=== PATIENT | male | born 1975 | race Caucasian/White ===

== ENCOUNTER 2018-05-13 09:22 | Emergency (ER) | payer SELFPAY ==
[2018-05-13 09:28] VITALS: BP 149/92
--- NOTE | 2018-05-13 10:09 | ER Document Report ---
ED ENT - General Chief Complaint: Ear Pain Stated Complaint: EAR CONGESTION Time Seen by Provider: 05/13/18 09:50 Mode of Arrival: Ambulatory Information source: Patient Notes: 33-year-old male presents to ED for complaint of stuffed up ear with 2-3 weeks. He states it makes him feel dizzy and nausea and vomiting. He states he needs a work note because they said he cannot come back to work until he is seen by a doctor. He states he always has a problem with his right ear. TRAVEL OUTSIDE OF THE [place] IN LAST 30 DAYS: No - HPI Patient complains to provider of: Ear problem - Right ear Onset: Other - 2-3 weeks Onset/Duration: Gradual Quality of pain: Other - Pressure Severity: Mild Pain Level: 1 Location of pain: Ears - Right ear Associated symptoms: Ear pain - Pressure, Vertigo, Other - States it makes him dizzy and nauseated Similar symptoms previously: Yes Recently seen / treated by doctor: No - Related Data Allergies/Adverse Reactions: No Known Allergies Allergy (Verified 05/13/18 09:22) Past Medical History - General Information source: Patient - Social History Smoking Status: Former Smoker Cigarette use (# per day): No Chew tobacco use (# tins/day): Yes Frequency of alcohol use: None Drug Abuse: None 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 Family History: Hypertension - Borderline, not on any medications Patient has suicidal ideation: No Patient has homicidal ideation: No - Past Medical History Cardiac Medical History: Reports: Hx Hypertension Pulmonary Medical History: Reports: None EENT Medical History: Reports: Ears Neurological Medical History: Reports: None Endocrine Medical History: Reports: None Renal/ Medical History: Reports: None Malignancy Medical History: Reports None GI Medical History: Reports: None Musculoskeletal Medical History: Reports None Skin Medical History: Reports None Psychiatric Medical History: Reports: Hx Anxiety, Hx Depression Traumatic Medical History: Reports: None Infectious Medical History: Reports: None Past Surgical History: Reports: Hx Appendectomy - Immunizations Immunizations up to date: Yes Review of Systems - Review of Systems Constitutional: No symptoms reported EENT: No symptoms reported Cardiovascular: No symptoms reported Respiratory: No symptoms reported Gastrointestinal: No symptoms reported Genitourinary: No symptoms reported Male Genitourinary: No symptoms reported Musculoskeletal: No symptoms reported Skin: No symptoms reported Hematologic/Lymphatic: No symptoms reported Neurological/Psychological: No symptoms reported -: Yes All other systems reviewed and negative Physical Exam - Vital signs Vitals: Temp Pulse Resp BP Pulse Ox 98.6 F 83 14 149/92 H 97 05/13/18 09:26 05/13/18 09:05/13/18 09:05/13/18 09:05/13/18 09:26 Interpretation: Normal - General General appearance: Appears well, Alert - HEENT Head: Normocephalic, Atraumatic Eyes: Normal Pupils: PERRL Ears: Normal External canal: Normal Tympanic membrane: Normal Sinus: Normal Nasal: Normal Mouth/Lips: Normal Pharynx: Normal Neck: Normal - Respiratory Respiratory status: No respiratory distress Chest status: Nontender Breath sounds: Normal Chest palpation: Normal - Cardiovascular Rhythm: Regular Heart sounds: Normal auscultation Murmur: No - Abdominal Inspection: Normal Distension: No distension Bowel sounds: Normal Tenderness: Nontender Organomegaly: No organomegaly - Back Back: Normal, Nontender - Extremities General upper extremity: Normal inspection, Nontender, Normal color, Normal ROM , Normal temperature General lower extremity: Normal inspection, Nontender, Normal color, Normal ROM , Normal temperature, Normal weight bearing. No: Moriah's sign - Neurological Neuro grossly intact: Yes Cognition: Normal Orientation: AAOx4 Tarik Coma Scale Eye Opening: Spontaneous Tarik Coma Scale Verbal: Oriented [place] Coma Scale Motor: Obeys Commands Tarik Coma Scale Total: 15 Speech: Normal Motor strength normal: LUE, RUE, LLE, RLE Sensory: Normal - Psychological Associated symptoms: Normal affect, Normal mood - Skin Skin Temperature: Warm Skin Moisture: Dry Skin Color: Normal Course - Re-evaluation Re-evalutation: 05/13/18 10:08 There is no redness swelling no drainage no cerumen impaction to the right ear. Tympanic membrane is within normal limits. He states he has a problem with this ear with pain all the time and that he has been on meclizine in the past for this ear problem. He states he is on 3 different blood pressure medicine but does not have the money till Tuesday to buy his blood pressure medicines. - Vital Signs Vital signs: Temp Pulse Resp BP Pulse Ox 98.6 F 83 14 149/92 H 97 05/13/18 09:26 05/13/18 09:26 05/13/18 09:05/13/18 09:26 05/13/18 09:26 Discharge - Discharge Clinical Impression: Vertigo Condition: Stable Disposition: HOME, SELF-CARE Instructions: Family Physicians / Practices Additional Instructions: DIZZINESS: Under normal circumstances, your sense of balance is controlled by a number of signals that your brain receives from several locations: Eyes. No matter what your position, visual signals help you determine where your body is in space and how it's moving. Sensory nerves. These are in your skin, muscles and joints. Sensory nerves send messages to your brain about body movements and positions. Inner ear. The organ of balance in your inner ear is the vestibular labyrinth. It includes loop-shaped structures (semicircular canals) that contain fluid and fine, hair-like sensors that monitor the rotation of your head. Near the semicircular canals are the utricle and saccule, which contain tiny particles called otoconia ([id number]). These particles are attached to sensors that help detect gravity and [id number] motion. Good balance depends on at least two of these three sensory systems working well. For instance, closing your eyes while washing your hair in the shower doesn't mean you'll lose your balance. Signals from your inner ear and sensory nerves help keep you upright. However, if your central nervous system can't process signals from all of these locations, if the messages are contradictory, or if the sensory systems aren't functioning properly, you may experience loss of balance. Dizziness may have a number of potential causes. These may include: Vertigo Vertigo - the false sense of motion or spinning - is the most common symptom of dizziness. Sitting up or moving around may make it worse. Sometimes vertigo is severe enough to cause nausea and vomiting. Vertigo usually results from a problem with the nerves and the structures of the balance mechanism in your inner ear (vestibular system), which sense movement and changes in your head position. Abnormal rhythmic eye movements ( nystagmus) almost always accompany vertigo. Causes of vertigo may include: Benign paroxysmal positional vertigo (BPPV). BPPV involves intense, brief episodes of vertigo associated with a change in the position of your head, often when you turn over in bed or sit up in the morning. It occurs when normal calcium carbonate crystals (otoconia) break loose and fall into the wrong part of the canals in your inner ear. When these particles shift, they stimulate sensors in your ear, producing an episode of vertigo. Doctors don't know what causes BPPV, but it may be a natural result of aging. Trauma to your head also may lead to BPPV. Inflammation in the inner ear. Signs and symptoms of inflammation of the inner ear (acute vestibular neuronitis or labyrinthitis) include sudden, intense vertigo that may persist for several days, with nausea and vomiting. It can be incapacitating, requiring bed rest to minimize the signs and symptoms. Fortunately, vestibular neuronitis generally subsides and clears up on its own. Recovery time may be shorter with vestibular rehabilitation exercises. Although the cause of this condition is unknown, it may be a viral infection. Meniere's disease. This disease involves the excessive buildup of fluid in your inner ear. It may affect adults at any age and is characterized by sudden episodes of vertigo lasting 30 minutes to an hour or longer. Other signs and symptoms include the feeling of fullness in your ear, buzzing or ringing in your ear (tinnitus), and fluctuating hearing loss. The cause of Meniere's disease is unknown. Vestibular migraine. People who experience a vestibular migraine are very sensitive to motion. Dizziness and vertigo caused by a vestibular migraine may be triggered by turning your head quickly, being in a crowded or confusing place , driving or riding in a vehicle, or even watching movement on TV. A vestibular migraine may cause feelings of imbalance or unsteadiness, hearing loss, "muffled " hearing, or ringing in your ears (tinnitus). For most people with a vestibular migraine, vertigo doesn't necessarily happen at the same time as the headache. Instead, typical migraine triggers may lead to vertigo without an actual migraine. Attacks of migrainous vertigo can last from a few minutes to several days. Acoustic neuroma. An acoustic neuroma (schwannoma) is a noncancerous (benign ) growth on the acoustic nerve, which connects the inner ear to your brain. Signs and symptoms of an acoustic neuroma may include dizziness, loss of balance , hearing loss and tinnitus. Rapid changes in motion. Riding on roller coasters or in boats, cars or even airplanes may on occasion make you dizzy. Other causes. Rarely, vertigo can be a symptom of a more serious neurological problem such as a stroke, brain hemorrhage or multiple sclerosis. Feeling of faintness (presyncope) "Presyncope" is the medical term for feeling faint and lightheaded without losing consciousness. Sometimes nausea, pale skin and a sense of dizziness accompany a feeling of faintness. Causes of presyncope include: Drop in blood pressure (orthostatic hypotension). A dramatic drop in your systolic blood pressure - the higher number in your blood pressure reading - may result in lightheadedness or a feeling of faintness. It can occur after sitting up or standing too quickly. Inadequate output of blood from the heart. Conditions such as partially blocked arteries (atherosclerosis), disease of the heart muscle (cardiomyopathy) , abnormal heart rhythm (arrhythmia) or a decrease in blood volume may cause inadequate blood flow from your heart. Loss of balance (disequilibrium) Disequilibrium is the loss of balance or the feeling of unsteadiness when you walk. Causes may include: Inner ear (vestibular) problems. Abnormalities with your inner ear can cause you to feel like you are floating, have a heavy head or are unsteady in the dark. Sensory disorders. Failing vision and nerve damage in your legs (peripheral neuropathy) are common in older adultsand may result in difficulty maintaining your balance. Joint and muscle problems. Muscle weakness and osteoarthritis - the type of arthritis that involves wear and tear of your joints - can contribute to loss of balance when it involves your weight-bearing joints. Medications. Loss of balance can be a side effect of certain medications, such as anti-seizure drugs, sedatives and tranquilizers. Lightheadedness and other kinds of dizziness Feeling lightheaded is the feeling of being "spaced out" or having the sensation of spinning inside your head. It can also give you the sensation that if your lightheadedness worsens, you might lose consciousness. Causes may include: Inner ear disorders. These abnormalities of your inner ear can lead to illusions of motion and make you feel like you're floating. Anxiety disorders. Certain anxiety disorders, such as panic attacks and a fear of leaving home or being in large, open spaces (agoraphobia), may cause lightheadedness. Hyperventilation. Abnormally rapid breathing that often accompanies anxiety disorders may make you feel lightheaded. NORMAL EXAM AND WORKUP: At this time, your examination and workup show no significant abnormality. No significant abnormal physical findings were noted. All laboratory, EKG, and imaging (x-ray, CT scans, ultrasound) studies that were ordered show no significant abnormality. Although your examination and all studies that were ordered showed no significant abnormal finding, there are no examinations and no studies that are 100% accurate. There is always the possibility that some abnormality could exist and not be detected with physical examination or within the limits and capabilities of laboratory and other studies. You should return or follow up as you were instructed on your visit today for further evaluation if your symptoms do not resolve. MECLIZINE: You are to take meclizine (Antivert) for control of symptoms. This is a drug of the antihistamine family which is useful for controlling nausea, dizziness, and motion sickness. Meclizine is usually taken three times a day, as needed. It's more effective at preventing symptoms than at relieving severe symptoms once they occur. It can be taken BEFORE activities which are likely to cause dizziness or nausea. Common side effects of this medicine are drowsiness and dry mouth. You should use caution in driving or operating machinery while taking this medication. In particular, you should not drive long distances or drive at night while taking this medicine. Meclizine should not be combined with alcohol , narcotics, or sedative medications without consulting your physician. ANTINAUSEA MEDICATION: You have been given a medication to suppress nausea and vomiting. This type of medication can be given as a shot, pill, or suppository. It will usually last for many hours. Pills and shots usually last six to eight hours, suppositories last about 12 hours. For the typical illness, only one or two doses of the medication may be necessary. Mild lightheadedness may occur. This type of medicine can cause drowsiness. Do not drive or operate dangerous machinery while under its influence. Do not mix with alcohol. See your doctor at once if you have muscle spasms or tightness, or uncontrollable motions (particularly of the neck, mouth, or jaw). Persistent vomiting or severe lightheadedness should also be evaluated by the physician. FOLLOW-UP CARE: If you have been referred to a physician for follow-up care, call the physician s office for an appointment as you were instructed or within the next two days. If you experience worsening or a significant change in your symptoms, notify the physician immediately or return to the Emergency Department at any time for re-evaluation. Prescriptions: Meclizine HCl [Antivert 25 mg Tablet] 25 mg PO TID PRN #21 tablet PRN Reason: Ondansetron HCl [Zofran 4 mg Tablet] 1 tab PO Q4H PRN #10 tablet PRN Reason: Forms: Elevated Blood Pressure, Return to Work Referrals: TELMA NEWMAN DO [ASSOCIATE] - Follow up as needed
== END 2018-05-13 10:18 | disposition home or self-care (01) ==
LOC: ER 09:22
DX: R42 Dizziness and giddiness (principal); H93.8X1 Other specified disorders of right ear; R11.2 Nausea with vomiting, unspecified; I10 Essential (primary) hypertension; Z87.891 Personal history of nicotine dependence
CPT/HCPCS: 99282

== ENCOUNTER 2018-05-31 09:24 | Emergency (ER) | payer SELFPAY ==
--- NOTE | 2018-05-31 09:59 | ER Document Report ---
ED Medical Screen (RME) - General Chief Complaint: Rectal Pain Stated Complaint: POSSIBLE HEMORRHOID Time Seen by Provider: 05/31/18 09:59 TRAVEL OUTSIDE OF THE [place] IN LAST 30 DAYS: No - HPI Notes: 05/31/18 09:59 Large painful hemorrhoid - Related Data Allergies/Adverse Reactions: No Known Allergies Allergy (Verified 05/31/18 09:25) Past Medical History - Social History Frequency of alcohol use: Rare Drug Abuse: None - Past Medical History Cardiac Medical History: Reports: Hx Hypertension Renal/ Medical History: Denies: Hx Peritoneal Dialysis Psychiatric Medical History: Reports: Hx Anxiety, Hx Depression Past Surgical History: Reports: Hx Appendectomy - Immunizations Immunizations up to date: Yes Review of Systems - Review of Systems Constitutional: Other - Hemorrhoid Physical Exam - Vital signs Vitals: Temp Pulse Resp BP Pulse Ox 97.8 F 81 12 157/108 H 98 05/31/18 09:28 05/31/18 09:28 05/31/18 09:28 05/31/18 09:28 05/31/18 09:28 - Respiratory Respiratory status: No respiratory distress Chest status: Nontender Breath sounds: Normal Chest palpation: Normal Course - Vital Signs Vital signs: Temp Pulse Resp BP Pulse Ox 97.8 F 81 12 157/108 H 98 05/31/18 09:28 05/31/18 09:28 05/31/18 09:28 05/31/18 09:28 05/31/18 09:28
--- NOTE | 2018-05-31 10:44 | ER Document Report ---
ED General - General Chief Complaint: Rectal Pain Stated Complaint: RECTAL PAIN Time Seen by Provider: 05/31/18 09:59 Mode of Arrival: Ambulatory Information source: Patient Notes: 43-year-old male with hypertension, previous history of hemorrhoids presents with complaint of 1 day of rectal pain. Patient describes the pain as throbbing , worse with sitting. Patient has had previous hemorrhoids which required surgery approximately 7 years ago. He denies any abdominal pain, constipation. TRAVEL OUTSIDE OF THE [place] IN LAST 30 DAYS: No - HPI Onset: Yesterday Onset/Duration: Sudden Quality of pain: Throbbing Severity: Moderate Associated symptoms: denies: Chest pain, Fever, Nausea, Vomiting, Shortness of breath Exacerbated by: Sitting Relieved by: Supine Similar symptoms previously: Yes Recently seen / treated by doctor: No - Related Data Allergies/Adverse Reactions: No Known Allergies Allergy (Verified 05/31/18 09:25) Past Medical History - General Information source: Patient - Social History Smoking Status: Current Every Day Smoker Frequency of alcohol use: Rare Drug Abuse: None Lives with: Friend Family History: Reviewed & Not Pertinent, Hypertension - Borderline, not on any medications Patient has suicidal ideation: No Patient has homicidal ideation: No - Past Medical History Cardiac Medical History: Reports: Hx Hypertension Renal/ Medical History: Denies: Hx Peritoneal Dialysis Psychiatric Medical History: Reports: Hx Anxiety, Hx Depression Past Surgical History: Reports: Hx Appendectomy - Immunizations Immunizations up to date: Yes Review of Systems - Review of Systems Notes: REVIEW OF SYSTEMS: CONSTITUTIONAL : Denies fever, chills, or sweats. Denies recent illness. Denies weight loss, recent hospitalizations. EENT: Denies visual changes, eye pain. Denies nasal or sinus congestion or discharge. Denies sore throat, oral lesions, difficulty swallowing. CARDIOVASCULAR: Denies chest pain. Denies palpitations. Denies lower extremity edema. RESPIRATORY: Denies cough, cold, or chest congestion. Denies shortness of breath, wheezing. GASTROINTESTINAL: Denies abdominal pain or distention. Denies nausea, vomiting , or diarrhea. Denies blood in vomitus, stools, or per rectum. Denies black, tarry stools. Denies constipation. GENITOURINARY: Denies difficulty urinating, painful urination, frequency, blood in urine, MUSCULOSKELETAL: Denies back or neck pain or stiffness. Denies joint pain or swelling. SKIN: Denies rash, lesions or sores. HEMATOLOGIC : Denies easy bruising or bleeding. LYMPHATIC: Denies swollen glands. NEUROLOGICAL: Denies confusion or altered mental status. Denies passing out or loss of consciousness. Denies dizziness or lightheadedness. Denies headache. Denies weakness or paralysis. Denies problems difficulty with ambulation, slurred speech. Denies sensory loss, numbness, or tingling. Denies seizures. PSYCHIATRIC: Denies anxiety or stress. Denies depression, suicidal ideation, or homicidal ideation. Denies visual or auditory hallucinations. Physical Exam - Vital signs Vitals: Temp Pulse Resp BP Pulse Ox 97.8 F 81 12 157/108 H 98 05/31/18 09:28 05/31/18 09:28 05/31/18 09:28 05/31/18 09:28 05/31/18 09:28 Interpretation: Hypertensive - Notes Notes: PHYSICAL EXAMINATION: GENERAL: Well-appearing, well-nourished and in no acute distress. HEAD: Atraumatic, normocephalic. EYES: Pupils equal round and reactive to light, extraocular movements intact, sclera anicteric, conjunctiva are normal. ENT: Nares patent, oropharynx clear without exudates. Moist mucous membranes. NECK: Normal range of motion, supple without lymphadenopathy LUNGS: Breath sounds clear to auscultation bilaterally and equal. No wheezes rales or rhonchi. HEART: Regular rate and rhythm without murmurs ABDOMEN: Soft, nontender, nondistended abdomen. No guarding, no rebound. No masses appreciated. : Large external hemorrhoid, soft, reducible, not thrombosed. Musculoskeletal: Normal range of motion, no pitting or edema. No cyanosis. NEUROLOGICAL: Cranial nerves grossly intact. Normal speech, normal gait. Normal sensory, motor exams PSYCH: Normal mood, normal affect. SKIN: Warm, Dry, normal turgor, no rashes or lesions noted. Course - Re-evaluation Re-evalutation: 05/31/18 10:40 43-year-old male presents with complaint of rectal pain. Has had previous external hemorrhoids which required surgery approximately 7 years ago. Rectal pain started yesterday. Denies any straining with bowel movements. Patient found to be markedly hypertensive but states that he has been out of his high blood pressure medication and cannot get it until Tuesday, because that is when he gets paid. He is unable to tell me what medications he is currently taking. I see to medications listed but he is unsure if these are the ones that he is currently taking. Exam is significant for a large external hemorrhoid which does not appear thrombosed, it is soft, reducible manually. Patient provided the opportunity to ask questions, and express concerns. Discharge instructions discussed. Patient is agreeable with discharge home. Return indications explained and discussed with the patient who displays understanding. Patient encouraged to return to the emergency department immediately with any concerns. 05/31/18 10:52 - Vital Signs Vital signs: Temp Pulse Resp BP Pulse Ox 97.8 F 81 12 157/108 H 98 05/31/18 09:28 05/31/18 09:28 05/31/18 09:28 05/31/18 09:28 05/31/18 09:28 Discharge - Discharge Clinical Impression: Rectal pain, External hemorrhoids without complication, Non compliance w medication regimen Hypertension Qualifiers: Hypertension type: unspecified Qualified Code(s): I10 - Essential (primary) hypertension Condition: Good Disposition: HOME, SELF-CARE Instructions: HC Hemorrhoid Cream ([facility]), Hemorrhoids ([facility]), Pain Medication Injection ([facility]), Bulk Laxatives Additional Instructions: Please perform sitz bath. Fill your bathtub with 3-4 inches of warm water and soak daily. At this point your hemorrhoid does not appear to be thrombosed requiring excision. This may change. He may require incision at a later date if the medications do not work. The cheapest prescription I could find for this medication is [employer] [facility] [employer]. Prescriptions: Hydrocodone/Acetaminophen [[place] 5-325 mg Tablet] 1 tab PO Q6H #10 tablet Hydrocortisone Acetate [Anusol Hc 25 mg Supp.rect] 1 supp.rect [place] BID #14 supp.rect Phenyleph/Mineral Oil/Petrolat [Preparation H Ointment] 28 gm RC BID #1 tube Forms: Elevated Blood Pressure
[2018-05-31 11:12] VITALS: BP 143/98
== END 2018-05-31 11:09 | disposition home or self-care (01) ==
LOC: ER 09:24
DX: K62.89 Other specified diseases of anus and rectum (principal); K64.4 Residual hemorrhoidal skin tags; I10 Essential (primary) hypertension; Z91.14 Patient's other noncompliance with medication regimen
CPT/HCPCS: 99283

== ENCOUNTER 2019-05-16 20:29 | Inpatient (IN) | payer SELFPAY ==
[~2019-05-16 20:29] MED LIST: MORPHINE SULFATE 10 MG/ML INJ IV PRN
[2019-05-16] MEDS ORDERED: ASPIRIN 81 MG TABLET, CHEWABLE PO ONE (20:34)
[2019-05-16] MEDS ORDERED: DILTIAZEM HCL/D5W 125 MG/125 ML RTUINJ IV PRN ×2 (20:45→23:36)
[2019-05-16] MEDS ORDERED: DILTIAZEM HCL INJ 25 MG/5 ML VIAL IV ONE (20:45)
[2019-05-16] MEDS ORDERED: LORAZEPAM INJ 2 MG/1 ML VIAL IV ONE (20:55)
[2019-05-16] MEDS ORDERED: NORMAL SALINE 1000 ML 1,000 ML IV ONE (20:57)
[2019-05-16] MEDS ORDERED: LORAZEPAM INJ 2 MG/1 ML VIAL ONE (20:57)
--- NOTE | 2019-05-16 20:58 | ER Document Report ---
ED General - General Stated Complaint: DIZZINESS Time Seen by Provider: 05/16/19 20:39 Notes: Patient is a 44-year-old male that comes to the emergency department by EMS for chief complaint of an episode where he suddenly started feeling bad vertigo, spinning, he started vomiting, he states that he started feeling tight in his chest. EMS found him to be in atrial fibrillation with rapid response, patient was given Zofran, Benadryl, and 25 mg of Cardizem. Patient slow down into the 90s reportedly, however this was almost 1 hour ago prior to my evaluation and patient is back into atrial fibrillation with rapid ventricular response in the 150s to 160s. Patient states he feels lightheaded and vaguely nauseated. Spinning is not as bad as earlier. 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 Patient reports a history of vertigo and hypertension on amlodipine 5m and lisinopril/HCTZ 20mg/25mg. He states he drinks alcohol frequently but has not in the past several days, he denies history of withdrawals. He denies recreational drugs. Uses dip but denies smoking. He denies ever being told of having afib or an irregular heartbeat. TRAVEL OUTSIDE OF THE [place] IN LAST 30 DAYS: No - Related Data Allergies/Adverse Reactions: No Known Allergies Allergy (Verified 05/31/18 09:25) Past Medical History - General Information source: Patient - Social History Smoking Status: Never Smoker Chew tobacco use (# tins/day): Yes Frequency of alcohol use: Occasional Drug Abuse: None Lives with: Alone Family History: Reviewed & Not Pertinent, Hypertension - Borderline, not on any medications - Past Medical History Cardiac Medical History: Reports: Hx Hypertension Renal/ Medical History: Denies: Hx Peritoneal Dialysis Psychiatric Medical History: Reports: Hx Anxiety, Hx Depression Past Surgical History: Reports: Hx Appendectomy - Immunizations Immunizations up to date: Yes Review of Systems - Review of Systems Constitutional: See HPI EENT: No symptoms reported Cardiovascular: See HPI Respiratory: No symptoms reported Gastrointestinal: See HPI Genitourinary: No symptoms reported Male Genitourinary: No symptoms reported Musculoskeletal: No symptoms reported Skin: No symptoms reported Hematologic/Lymphatic: No symptoms reported Neurological/Psychological: See HPI Physical Exam - Vital signs Vitals: Resp Pulse Ox 23 H 100 05/16/19 20:33 05/16/19 20:33 - Notes Notes: GENERAL: Alert, appears somewhat uncomfortable, mildly ill-appearing HEAD: Normocephalic, atraumatic. EYES: Pupils equal, round, and reactive to light. Extraocular movements intact. ENT: Oral mucosa moist, tongue midline. Oropharynx unremarkable. Airway patent. LUNGS: Clear to auscultation bilaterally, no wheezes, rales, or rhonchi. No respiratory distress. HEART: Irregularly irregular, tachycardia ABDOMEN: Soft, non-tender. Non-distended. GENITOURINARY: Deferred EXTREMITIES: Moves all 4 extremities spontaneously. No edema, normal radial and dorsalis pedis pulses bilaterally. No cyanosis. BACK: no cervical, thoracic, lumbar midline tenderness. No saddle anesthesia, normal distal neurovascular exam. Moves all extremities in full range of motion. NEUROLOGICAL: Alert and oriented x3. Normal speech. Cranial nerves II through XII grossly intact. PSYCH: Normal affect, normal mood. SKIN: Slightly pale and slightly diaphoretic Course - Re-evaluation Re-evalutation: On initial evaluation patient is in atrial fibrillation with rapid ventricular response. He also suddenly became nauseated and vomited. Patient was initially given 1 mg of IV Ativan and this significantly helped with his vertigo and vomi ting. Given IV fluids, given 25 mg of IV Cardizem bolus, placed on Cardizem drip to maintain this since he has not maintained rate control since the first dose. Patient did respond well, heart rate decreased into the low 100s but occasionally will still jump back up higher. Patient reevaluated, feels significantly better. CBC, chemistry unremarkable, troponin unremarkable, chest x-ray unremarkable, work-up otherwise with no concerning findings. Given Lovenox. Patient has been given aspirin too. Because of persistent vertigo, vomiting, new onset atrial fibrillation with rapid ventricular response requiring Cardizem drip, patient will require admission. I discussed this with patient, he states agreement. Discussed with Dr. Figueroa, hospitalist, patient will be admitted to the [facility] f ull admission. - Vital Signs Vital signs: Temp Pulse Resp BP Pulse Ox 97.6 F 66 20 97/56 L 96 05/17/19 03:55 05/17/19 03:55 05/17/19 03:55 05/17/19 03:55 05/17/19 03:55 - Laboratory Result Diagrams: 05/17/19 02:47 05/17/19 02:47 Laboratory results interpreted by me: 05/16/19 05/16/19 05/16/19 20:47 20:50 20:50 RDW 14.1 H Lymph % (Auto) 9.0 L Absolute Neuts (auto) 8.5 H Seg Neutrophils % 84.4 H Potassium 3.5 L Carbon Dioxide 17 L Glucose 149 H POC Glucose 139 H Total Protein 8.3 H Urine Ketones 05/16/19 20:50 RDW Lymph % (Auto) Absolute Neuts (auto) Seg Neutrophils % Potassium Carbon Dioxide Glucose POC Glucose Total Protein Urine Ketones 20 H Discharge - Discharge Clinical Impression: Atrial fibrillation with RVR, Vertigo, Dehydration Nausea and vomiting Qualifiers: Vomiting type: unspecified Vomiting Intractability: non-intractable Qualified Code(s): R11.2 - Nausea with vomiting, unspecified Condition: Stable Disposition: ADMITTED INPATIENT Admitting Provider: Carolina (Hospitalist) Unit Admitted: [facility]
[2019-05-16] MEDS ORDERED: DILTIAZEM HCL INJ 25 MG/5 ML VIAL ONE (21:03)
[2019-05-16] MEDS ORDERED: DILTIAZEM HCL/D5W 125 MG/125 ML RTUINJ IV ONE (21:04)
[2019-05-16] MEDS ORDERED: ASPIRIN 81 MG TABLET, ENT COATED PO ONE (21:18)
[2019-05-16] MEDS ORDERED: ASPIRIN 81 MG TABLET, CHEWABLE ONE (21:19)
[2019-05-16 21:31] LABS: ABSOLUTE EOSINOPHILS # (AUTO) 0.1 10^3/uL (0.0-0.6); ABSOLUTE LYMPHOCYTES (AUTO) 0.9 10^3/uL (0.5-4.7); ABSOLUTE MONOCYTES (AUTO) 0.6 10^3/uL (0.1-1.4); ABSOLUTE NEUT (AUTO) 8.5 10^3/uL (1.7-8.2); BASOPHILS % (AUTO) 0.3 % (0-2); EOSINOPHILS % (AUTO) 0.7 % (0-6); HEMATOCRIT 46.3 % (37.9-51.0); MEAN CORPUSCULAR HGB CONC 34.4 g/dL (32.0-36.0); MEAN CORPUSCULAR VOLUME 87 fl (80-97); MONOCYTES % (AUTO) 5.6 % (3-13); PLATELET COUNT 231 10^3/uL (150-450); RED BLOOD COUNT 5.32 10^6/uL (4.35-5.55); RED CELL DISTRIBUTION WIDTH 14.1 % (11.5-14.0); SEGMENTED NEUTROPHILS % (AUTO) 84.4 % (42-78); TOTAL CELLS COUNTED % (AUTO) 100 %
[2019-05-16 21:33] LABS: APPEARANCE,URINE CLEAR; BILIRUBIN,URINE NEGATIVE (NEGATIVE); COLOR,URINE STRAW; GLUCOSE, URINE NEGATIVE (NEGATIVE); KETONES,URINE 20 mg/dL (NEGATIVE); LEUKOCYTE ESTERASE,URINE NEGATIVE (NEGATIVE); NITRITE,URINE NEGATIVE (NEGATIVE); PROTEIN,URINE NEGATIVE (NEGATIVE); URINE SPECIFIC GRAVITY 1.009; UROBILINOGEN,URINE NEGATIVE mg/dL (<2.0)
[2019-05-16 21:40] LABS: ALBUMIN 4.9 g/dL (3.5-5.0); ALKALINE PHOSPHATASE 79 U/L (38-126); ANION GAP 18 (5-19); ASPARTATE AMINO TRANSFERASE 44 U/L (17-59); BILIRUBIN,DIRECT 0.3 mg/dL (0.0-0.4); BILIRUBIN,TOTAL 0.9 mg/dL (0.2-1.3); BLOOD UREA NITROGEN 10 mg/dL (7-20); CALCIUM 9.4 mg/dL (8.4-10.2); CARBON DIOXIDE 17 mmol/L (22-30); CHLORIDE 105 mmol/L (98-107); GLUCOSE 149 mg/dL (75-110); POTASSIUM 3.5 mmol/L (3.6-5.0); TOTAL PROTEIN 8.3 g/dL (6.3-8.2)
--- NOTE | 2019-05-16 21:53 | RADIOLOGY REPORT (SQ) ---
EXAM DESCRIPTION: [facility]: XR CHEST 1 VIEW CLINICAL HISTORY: 44 years Male, CP COMPARISON: None. FINDINGS: Lungs are clear, with no focal infiltrate, pneumothorax, or pleural effusion. Mediastinum is within normal limits for this positioning. Bony structures are unremarkable. IMPRESSION: 1. No acute pulmonary findings.
[2019-05-16] MEDS ORDERED: ENOXAPARIN SODIUM INJ 100 MG/1 ML DISP.SYRIN SUBCUT ONE ×2 (22:25→22:28)
[2019-05-16] MEDS ORDERED: TEMAZEPAM 15 MG CAPSULE PO PRN (23:29)
[2019-05-16] MEDS ORDERED: ONDANSETRON 4 MG TAB.RAPDIS PO PRN (23:29)
[2019-05-16] MEDS ORDERED: ONDANSETRON HCL INJ/PF 4 MG/2 ML SDV IV PRN (23:29)
[2019-05-16] MEDS ORDERED: RINGERS SOLUTION,LACTATED 1,000 ML IV PRN (23:29)
[2019-05-16] MEDS ORDERED: MAGNESIUM HYDROXIDE SUSP 30 ML UDCUP PO PRN (23:29)
[2019-05-16] MEDS ORDERED: MAG HYDROX/AL HYDROX/SIMETH SUSP 30 ML UDCUP PO PRN (23:29)
[2019-05-16] MEDS ORDERED: ACETAMINOPHEN 325 MG TABLET PO PRN (23:35)
[2019-05-16] MEDS ORDERED: MORPHINE SULFATE 10 MG/ML INJ IV PRN (23:35)
[2019-05-17] MEDS ORDERED: FAMOTIDINE INJ/PF 20 MG/2 ML SDV IV ONE (00:15)
[2019-05-17] MEDS ORDERED: SCOPOLAMINE HYDROBROMIDE 1.5 MG PATCH.TD72 TD ONE (00:15)
[2019-05-17] MEDS ORDERED: DILTIAZEM HCL 90 MG TABLET ONE (01:52)
--- NOTE | 2019-05-17 02:10 | PDOC H&P ---
History of Present Illness Admission Date/PCP: 05/16/19 22:38 No PCP Patient complains of: Vertigo History of Present Illness: CIELO RICO is a 44 year old male who presented to the emergency room with acute vertigo. 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 While driving home he abruptly developed severe vertigo, with associated nausea and vomiting as well as tightness in his chest, when he turned his head to the right to look for oncoming traffic. He denies other associated or accompanying symptoms and has not experienced prior similar episodes. His vertigo was made worse by movements of his head especially looking to the right. He has not identified any other aggravating or ameliorating factors for his vertigo. EMS was summoned and found him to be in atrial fibrillation with a rapid ventricular response which was treated with intravenous Cardizem, Benadryl and Zofran. Patient showed marked improvement with treatment. In the emergency room patient was found to remain in atrial fibrillation and require a diltiazem infusion for control of his heart rate. He was also treated with meclizine which markedly improved his vertigo. He was subsequently admitted to the [facility] for further evaluation and treatment of his acute onset atrial fibrillation. Past Medical History Cardiac Medical History: Reports: Hypertension Denies: Coronary Artery Disease, DVT, Myocardial Infarction, Hyperlipidema Pulmonary Medical History: Denies: Asthma, Chronic Obstructive Pulmonary Disease (COPD) EENT Medical History: Denies: Cataracts, Nose - Allergic rhinitis Neurological Medical History: Denies: Hemorrhagic CVA, Ischemic CVA, Multiple Sclerosis, Seizures Endocrine Medical History: Reports: Obesity Denies: Diabetes Mellitus Type 1, Diabetes Mellitus Type 2, Hyperthyroidism, Hypothyroidism Renal/ Medical History: Denies: Chronic Kidney Disease, Nephrolithiasis Malignancy Medical History: Reports: None GI Medical History: Reports: Other - Hemorrhoids Denies: Cirrhosis, Crohn's Disease, Hepatitis, Ulcerative Colitis Musculoskeltal Medical History: Denies: Arthritis, Gout Skin Medical History: Denies: Eczema, Psoriasis Psychiatric Medical History: Reports: Depression, Tobacco Dependency Denies: Alcohol Dependency, Substance Abuse Traumatic Medical History: Reports: None Hematology: Denies: Anemia, Bleeding Tendencies Infectious Medical History: Reports: None Past Surgical History Past Surgical History: Reports: Appendectomy Social History Information Source: Patient Lives with: Spouse/Significant other Smoking Status: Current Every Day Smoker Frequency of Alcohol Use: Occasional Hx Recreational Drug Use: No Drugs: None Hx Prescription Drug Abuse: No - Advance Directive Resuscitation Status: Full Code Surrogate healthcare decision maker:: Ellie Griffith Family History Family History: DM, Hypertension, Malignancy. denies: CAD Parental Family History Reviewed: Yes Children Family History Reviewed: No Sibling(s) Family History Reviewed.: Yes Medication/Allergy Home Medications: Amlodipine Besylate 5 mg PO DAILY 05/31/18 Hydrocodone/Acetaminophen [[place] 5-325 mg Tablet] 1 tab PO Q6H #10 tablet 05/31/18 Hydrocortisone Acetate [Anusol Hc 25 mg Supp.rect] 1 supp.rect NH BID #14 supp.rect 05/31/18 Lisinopril/Hydrochlorothiazide [Lisinopril-Hctz 20-25 mg Tab] 1 each PO DAILY 05/31/18 Phenyleph/Mineral Oil/Petrolat [Preparation H Ointment] 28 gm RC BID #1 tube 05/31/18 Allergies/Adverse Reactions: No Known Allergies Allergy (Verified 05/31/18 09:25) Review of Systems Constitutional: ABSENT: chills, fever(s) Eyes: ABSENT: visual disturbances, other - Eye pain Ears: ABSENT: hearing changes, other - Ear pain Nose, Mouth, and Throat: ABSENT: mouth pain, sore throat Cardiovascular: PRESENT: as per HPI, chest pain - Chest tightness with nausea vomiting and dizziness. ABSENT: palpitations Respiratory: ABSENT: cough, dyspnea Gastrointestinal: PRESENT: nausea, vomiting. ABSENT: abdominal pain, constipation, diarrhea, hematemesis Genitourinary: ABSENT: dysuria, hematuria Musculoskeletal: ABSENT: back pain, joint swelling, muscle weakness Integumentary: ABSENT: pruritus, rash Neurological: PRESENT: as per HPI, dizziness, vertigo. ABSENT: confusion, convulsions, focal weakness, memory loss, syncope Psychiatric: ABSENT: anxiety, depression Endocrine: ABSENT: cold intolerance, heat intolerance Hematologic/Lymphatic: ABSENT: easy bleeding, easy bruising Physical Exam Vital Signs: Temp Pulse Resp BP Pulse Ox 97.7 F 153 H 23 H 124/89 H 95 05/16/19 20:34 05/16/19 20:34 05/16/19 22:39 05/16/19 22:39 05/16/19 22:39 Intake & Output 05/14/19 05/15/19 05/16/19 23:59 23:59 23:59 Intake Total 1005 Balance 1005 Weight 99.6 kg General appearance: PRESENT: no acute distress, cooperative, obese Head exam: PRESENT: atraumatic, normocephalic Eye exam: PRESENT: conjunctiva pink, nystagmus - Severe right lateral gaze nystagmus (fast component to the right). ABSENT: conjunctival injection, scleral icterus Ear exam: PRESENT: normal external ear exam. ABSENT: bleeding, drainage Mouth exam: PRESENT: dry mucosa, neck supple Neck exam: ABSENT: thyromegaly, tracheal deviation Respiratory exam: PRESENT: clear to auscultation haylee, symmetrical, unlabored Cardiovascular exam: PRESENT: irregular rhythm - Irregularly irregular rate and rhythm, tachycardia. ABSENT: clicks, gallop, rubs Pulses: PRESENT: normal radial pulses, normal dorsalis pedis pul Vascular exam: PRESENT: normal capillary refill. ABSENT: pallor GI/Abdominal exam: PRESENT: normal bowel sounds, soft Rectal exam: PRESENT: deferred Extremities exam: ABSENT: joint swelling, pedal edema Musculoskeletal exam: PRESENT: full ROM, normal inspection. ABSENT: tenderness Neurological exam: PRESENT: alert, oriented to person, oriented to place, oriented to time, oriented to situation, CN II-XII grossly intact. ABSENT: motor sensory deficit Psychiatric exam: PRESENT: appropriate affect, normal mood Skin exam: PRESENT: dry, intact, warm. ABSENT: jaundice, rash, urticaria Results Laboratory Results: 05/16/19 20:50 05/16/19 20:50 05/16/19 05/16/19 05/16/19 20:50 20:50 20:50 WBC 10.0 RBC 5.32 Hgb 16.0 Hct 46.3 MCV 87 MCH 30.0 MCHC 34.4 RDW 14.1 H Plt Count 231 Seg Neutrophils % 84.4 H Sodium 140.3 Potassium 3.5 L Chloride 105 Carbon Dioxide 17 L Anion Gap 18 BUN 10 Creatinine 0.75 Est GFR ( Amer) > 60 Glucose 149 H Calcium 9.4 Magnesium 1.7 Total Bilirubin 0.9 AST 44 Alkaline Phosphatase 79 Total Protein 8.3 H Albumin 4.9 Urine Color STRAW Urine Appearance CLEAR Urine pH 7.0 Ur Specific [place] 1.009 Urine Protein NEGATIVE Urine Glucose (UA) NEGATIVE Urine Ketones 20 H Urine Blood NEGATIVE Urine Nitrite NEGATIVE Ur Leukocyte Esterase NEGATIVE Urine WBC (Auto) 1 Urine RBC (Auto) 0 05/16/19 05/16/19 20:50 20:50 Creatine Kinase 160 Troponin I < 0.012 Impressions: Chest X-Ray 05/16/19 00:00 IMPRESSION: 1. No acute pulmonary findings. Assessment and Plan - Diagnosis (1) Atrial fibrillation with RVR Is this a current diagnosis for this admission?: Yes Plan: Patient will have serial cardiac enzymes and EKGs performed. He will be treated with Lovenox 1 mg/kg every 12 hours as initial embolic protection. A cardiology consultation will be obtained with Dr. Oneill. Patient will use morphine sulfate 2 to 4 mg IV every 2 hours on a as needed basis for chest pain. He will be monitored on the IMCU floor and he will be treated with a diltiazem infusion per protocol until oral agents have been effective at controlling his heart rate and blood pressure. (2) Vertigo Is this a current diagnosis for this admission?: Yes Plan: Patient will be continued on meclizine orally for control of his vertigo and dizziness. Further evaluation will be considered if the symptoms do not resolve or show some evidence of lateralization. (3) Nausea and vomiting Qualifiers: Vomiting type: unspecified Vomiting Intractability: non-intractable Qualified Code(s): R11.2 - Nausea with vomiting, unspecified Is this a current diagnosis for this admission?: Yes Plan: Patient's nausea vomiting was treated with IV fluid repletion and electrolyte balancing. He will further be treated with Zofran on a as needed basis for nausea. (4) Hypertension Qualifiers: Hypertension type: essential hypertension Qualified Code(s): I10 - Essential (primary) hypertension Is this a current diagnosis for this admission?: Yes Plan: Patient with therapeutic treatment will be adjusted for control of his atrial fibrillation with rapid ventricular response using Cardizem and metoprolol XL. - Time Time Spent with patient: 25-34 minutes Medications reviewed and adjusted accordingly: Yes Anticipated discharge: Home - Inpatient Certification Based on my medical assessment, after consideration of the patient's comorbidities, presenting symptoms, or acuity I expect that the services needed warrant INPATIENT care.: Yes I certify that my determination is in accordance with my understanding of Medicare's requirements for reasonable and necessary INPATIENT services [42 CFR 412.3e].: Yes Medical Necessity: Need Close Monitoring Due to Risk of Patient Decompensation, Need For Continuous Telemetry Monitoring, Need for Neurological Checks, Risk of Complication if Not Cared For in Hospital
[2019-05-17 03:01] LABS: HEMATOCRIT 43.7 % (37.9-51.0); HEMOGLOBIN 14.8 g/dL (13.5-17.0); MEAN CORPUSCULAR HEMOGLOBIN 29.7 pg (27.0-33.4); MEAN CORPUSCULAR HGB CONC 33.9 g/dL (32.0-36.0); MEAN CORPUSCULAR VOLUME 88 fl (80-97); PLATELET COUNT 226 10^3/uL (150-450); RED BLOOD COUNT 4.98 10^6/uL (4.35-5.55); RED CELL DISTRIBUTION WIDTH 14.2 % (11.5-14.0); WHITE BLOOD COUNT 8.5 10^3/uL (4.0-10.5)
[2019-05-17 03:20] LABS: ANION GAP 11 (5-19); BLOOD UREA NITROGEN 10 mg/dL (7-20); CALCIUM 8.8 mg/dL (8.4-10.2); CARBON DIOXIDE 22 mmol/L (22-30); CHLORIDE 106 mmol/L (98-107); CHOLESTEROL 194.12 mg/dL (0-200); CREATINE KINASE 130 U/L (55-170); GLUCOSE 117 mg/dL (75-110); TRIGLYCERIDES 103 mg/dL (<150)
[2019-05-17 03:31] LABS: DIRECT LDL 161 mg/dL (<100)
[2019-05-17 03:32] LABS: CREATINE KINASE MB 1.13 ng/mL (<4.55)
[2019-05-17 03:38] LABS: FREE T3 3.18 pg/mL (2.77-5.27); FREE T4 (FREE THYROXINE) 0.95 ng/dL (0.78-2.19); TROPONIN I < 0.012 ng/mL
[2019-05-17 03:41] LABS: POTASSIUM 4.7 mmol/L (3.6-5.0)
[2019-05-17 03:51] LABS: THYROID STIMULATING HORMONE 0.67 uIU/mL (0.47-4.68)
[2019-05-17] MEDS ORDERED: DILTIAZEM HCL 90 MG TABLET PO ONE (08:00)
--- NOTE | 2019-05-17 09:03 | EKG REPORT ---
SEVERITY:- ABNORMAL ECG - ATRIAL FIBRILLATION, V-RATE 90-174 MULTIFORM VENTRICULAR PREMATURE COMPLEXES BORDERLINE PROLONGED QT INTERVAL : Confirmed by: Vira Oneill MD 17-May-2019 09:02:14
--- NOTE | 2019-05-17 09:03 | EKG REPORT ---
SEVERITY:- ABNORMAL ECG - ATRIAL FIBRILLATION NONSPECIFIC REPOL ABNORMALITY, INFERIOR LEADS PROLONGED QT INTERVAL : Confirmed by: Vira Oneill MD 17-May-2019 09:02:20
[2019-05-17] MEDS: DOCUSATE SODIUM 100 MG CAPSULE PO SCH ×2 (09:13→17:00)
[2019-05-17] MEDS: FAMOTIDINE INJ/PF 20 MG/2 ML SDV IV SCH ×2 (09:14→21:48)
[2019-05-17] MEDS: LISINOPRIL 10 MG TABLET PO SCH (09:14)
[2019-05-17] MEDS ORDERED: HYDROCHLOROTHIAZIDE 12.5 MG TABLET PO SCH (10:00)
[2019-05-17] MEDS ORDERED: METOPROLOL SUCCINATE 50 MG TAB.SR.24H PO SCH (10:00)
[2019-05-17] MEDS ORDERED: ENOXAPARIN SODIUM INJ 100 MG/1 ML DISP.SYRIN SUBCUT SCH (10:00)
[2019-05-17 10:38] LABS: APPEARANCE,URINE CLEAR; BILIRUBIN,URINE NEGATIVE (NEGATIVE); COLOR,URINE YELLOW; GLUCOSE, URINE NEGATIVE (NEGATIVE); KETONES,URINE TRACE mg/dL (NEGATIVE); LEUKOCYTE ESTERASE,URINE NEGATIVE (NEGATIVE); NITRITE,URINE NEGATIVE (NEGATIVE); PROTEIN,URINE NEGATIVE (NEGATIVE); URINE SPECIFIC GRAVITY 1.018; UROBILINOGEN,URINE NEGATIVE mg/dL (<2.0)
[2019-05-17 10:44] LABS: CREATINE KINASE MB 1.13 ng/mL (<4.55)
[2019-05-17 10:49] LABS: TROPONIN I < 0.012 ng/mL
--- NOTE | 2019-05-17 10:49 | Progress Note Acknowledgement ---
Progress Note Acknowledgement Progess Note Acknowledgement: I, the undersigned member of the medical staff with appropriate privileges and with supervisory authority over [ PAC ], a dependent practice allied health professional, acknowledge that I have reviewed the progress notes entered on this patient, and in my professional judgment believe that the assessment made and/or any care evidenced was appropriate
--- NOTE | 2019-05-17 10:55 | PDOC PROGRESS REPORT ---
Subjective Progress Note for:: 05/17/19 Subjective:: Patient was admitted on 05/16/2019 at approximately 2200 hrs. patient was admitted for acute vertigo, patient evidently had had only 10 cups of coffee earlier that day. Patient was driving and suddenly turned his head to the right when he had acute onset of vertigo as well as vomiting. Patient presented to the emergency room he was found to be in atrial fib with rapid ventricular rate patient was put on IV Cardizem. Patient was supposed to be taken Norvasc 5 mill grams a day and lisinopril and HCTZ however due to financial difficulty he was not taking his medication patient stated he had a history of hypertension. Patient states his had a history of vertigo off and on for 6 years. Patient states that they told him his vertigo was secondary to his hypertension. Reason For Visit: NEW ONSET ATRIAL FIBRILLATION WITH RAPID Physical Exam Vital Signs: Temp Pulse Resp BP Pulse Ox 98.0 F 69 14 125/73 97 05/17/19 08:03 05/17/19 08:03 05/17/19 08:03 05/17/19 08:03 05/17/19 08:03 Intake & Output 05/16/19 05/17/19 05/18/19 06:59 06:59 06:59 Intake Total 1053 197 Balance 1053 197 Weight 87.4 kg General appearance: PRESENT: no acute distress, well-developed, well-nourished Head exam: PRESENT: atraumatic, normocephalic Respiratory exam: PRESENT: clear to auscultation haylee. ABSENT: rales, rhonchi, wheezes Cardiovascular exam: PRESENT: RRR, other - Patient's heart rate at the time of my visit is approximately 78 bpm and regular and looks as though patient converted around 6 AM this morning from 114 down to 73. ABSENT: diastolic murmur, rubs, systolic murmur Neurological exam: PRESENT: alert, awake, oriented to person, oriented to place, oriented to time, oriented to situation, CN II-XII grossly intact. ABSENT: motor sensory deficit Psychiatric exam: PRESENT: appropriate affect, normal mood, other - She is in good spirits complaints. ABSENT: homicidal ideation, suicidal ideation Results Laboratory Results: 05/17/19 02:47 05/17/19 02:47 05/16/19 05/16/19 05/16/19 20:50 20:50 20:50 WBC 10.0 RBC 5.32 Hgb 16.0 Hct 46.3 MCV 87 MCH 30.0 MCHC 34.4 RDW 14.1 H Plt Count 231 Seg Neutrophils % 84.4 H Sodium 140.3 Potassium 3.5 L Chloride 105 Carbon Dioxide 17 L Anion Gap 18 BUN 10 Creatinine 0.75 Est GFR ( Amer) > 60 Glucose 149 H Calcium 9.4 Magnesium 1.7 Total Bilirubin 0.9 AST 44 Alkaline Phosphatase 79 Total Protein 8.3 H Albumin 4.9 Triglycerides Cholesterol LDL Cholesterol Direct VLDL Cholesterol HDL Cholesterol TSH 1.15 Free T4 Free T3 pg/mL Urine Color Urine Appearance Urine pH Ur Specific [place] Urine Protein Urine Glucose (UA) Urine Ketones Urine Blood Urine Nitrite Ur Leukocyte Esterase Urine WBC (Auto) Urine RBC (Auto) 05/16/19 05/17/19 05/17/19 20:50 02:47 02:47 WBC RBC Hgb Hct MCV MCH MCHC RDW Plt Count Seg Neutrophils % Sodium 138.6 Potassium 4.7 D Chloride 106 Carbon Dioxide 22 Anion Gap 11 BUN 10 Creatinine 0.79 Est GFR ( Amer) > 60 Glucose 117 H Calcium 8.8 Magnesium 2.0 Total Bilirubin AST Alkaline Phosphatase Total Protein Albumin Triglycerides 103 Cholesterol 194.12 LDL Cholesterol Direct 161 H VLDL Cholesterol 21.0 HDL Cholesterol 42 TSH 0.67 Free T4 0.95 Free T3 pg/mL 3.18 Urine Color STRAW Urine Appearance CLEAR Urine pH 7.0 Ur Specific [place] 1.009 Urine Protein NEGATIVE Urine Glucose (UA) NEGATIVE Urine Ketones 20 H Urine Blood NEGATIVE Urine Nitrite NEGATIVE Ur Leukocyte Esterase NEGATIVE Urine WBC (Auto) 1 Urine RBC (Auto) 0 05/17/19 05/17/19 02:47 10:17 WBC 8.5 RBC 4.98 Hgb 14.8 Hct 43.7 MCV 88 MCH 29.7 MCHC 33.9 RDW 14.2 H Plt Count 226 Seg Neutrophils % Sodium Potassium Chloride Carbon Dioxide Anion Gap BUN Creatinine Est GFR ( Amer) Glucose Calcium Magnesium Total Bilirubin AST Alkaline Phosphatase Total Protein Albumin Triglycerides Cholesterol LDL Cholesterol Direct VLDL Cholesterol HDL Cholesterol TSH Free T4 Free T3 pg/mL Urine Color YELLOW Urine Appearance CLEAR Urine pH 6.0 Ur Specific [place] 1.018 Urine Protein NEGATIVE Urine Glucose (UA) NEGATIVE Urine Ketones TRACE H Urine Blood NEGATIVE Urine Nitrite NEGATIVE Ur Leukocyte Esterase NEGATIVE Urine WBC (Auto) 3 Urine RBC (Auto) 1 05/16/19 05/16/19 05/17/19 20:50 20:50 02:47 Creatine Kinase 160 CK-MB (CK-2) 1.13 Troponin I < 0.012 < 0.012 05/17/19 05/17/19 02:47 09:34 Creatine Kinase 130 130 CK-MB (CK-2) Troponin I Impressions: Chest X-Ray 05/16/19 00:00 IMPRESSION: 1. No acute pulmonary findings. Assessment and Plan - Diagnosis (1) Atrial fibrillation with RVR Is this a current diagnosis for this admission?: Yes Plan: Patient will have serial cardiac enzymes and EKGs performed. He will be treated with Lovenox 1 mg/kg every 12 hours as initial embolic protection. A cardiology consultation will be obtained with Dr. Oneill. Patient will use morphine sulfate 2 to 4 mg IV every 2 hours on a as needed basis for chest pain. He will be monitored on the IMCU floor and he will be treated with a diltiazem infusion per protocol until oral agents have been effective at controlling his heart rate and blood pressure. 05/17/2019 patient was on a Cardizem drip and converted this morning at 0 600 from a rate of 114 down to 73. Patient is currently asymptomatic. Patient is currently taking Lovenox 100 mg subcu every 12 hours patient was also started on Prinivil 10 mg daily and sotalol 40 mg every 12 hours (2) Hypertension Qualifiers: Hypertension type: essential hypertension Qualified Code(s): I10 - Essential (primary) hypertension Is this a current diagnosis for this admission?: Yes Plan: Patient with therapeutic treatment will be adjusted for control of his atrial fibrillation with rapid ventricular response using Cardizem and metoprolol XL. 05/17/2019 his blood pressure in the emergency room on arrival was 187/114, it is come down through the night and this morning it is 125/73. It had been as low as 95/66 earlier this morning (3) Vertigo Is this a current diagnosis for this admission?: Yes Plan: Patient will be continued on meclizine orally for control of his vertigo and dizziness. Further evaluation will be considered if the symptoms do not resolve or show some evidence of lateralization. 05/17/2019 patient will use meclizine on a as needed basis. - Time Time Spent with patient: 25-34 minutes - Patient does have a cardiology consult pending.
[2019-05-17 10:57] LABS: URINE AMPHETAMINES SCREEN NEGATIVE; URINE BARBITURATES SCREEN NEGATIVE; URINE BENZODIAZEPINES SCREEN NEGATIVE; URINE COCAINE SCREEN NEGATIVE; URINE MARIJUANA (THC) SCREEN NEGATIVE; URINE METHADONE SCREEN NEGATIVE; URINE PHENCYCLIDINE SCREEN NEGATIVE
--- NOTE | 2019-05-17 12:28 | RADIOLOGY REPORT (SQ) ---
EXAM DESCRIPTION: MRI HEAD WITHOUT COMPLETED DATE/TIME: 05/17/2019 11:52 am REASON FOR STUDY: acute onset right lateral severe vertigo COMPARISON: None. TECHNIQUE: Multiplanar imaging includes non-contrasted T1, T2, FLAIR, and diffusion with ADC map seq uences. Images stored on PACS. Multiplanar imaging includes non-contrasted T1, T2, FLAIR, and diffusion with ADC map sequences. Add itional thin slice image in the posterior fossa. Images stored on PACS. LIMITATIONS: None. FINDINGS: ANATOMY: No anomalies. Normal vascular flow voids. Pituitary fossa normal. CSF SPACES: Normal in size and contour. No hemorrhage. CEREBRUM: Sulci and gyri normal in size and contour. Normal white matter signal on FLAIR imaging. No evidence of hemorrhage, mass, or extraaxial fluid collection. POSTERIOR FOSSA: No signal alteration. No hemorrhage. No edema, masses or mass effect. Internal joyce tory canals, cerebello-pontine angles, mastoids normal. DIFFUSION IMAGING: Negative for acute or sub-acute infarction. ORBITS: No masses. Globes normal. PARANASAL SINUSES: No fluid levels. Mucosa normal. OTHER: No other significant finding. IMPRESSION: NORMAL MRI OF THE BRAIN WITHOUT INTRAVENOUS GADOLINIUM CONTRAST. EVIDENCE OF ACUTE STROKE: NO. TECHNICAL DOCUMENTATION: JOB ID: [id number] [employer]- All Rights Reserved Reading location - IP/workstation name: [email or web address]
[2019-05-17] MEDS: SOTALOL HCL 80 MG TABLET PO SCH (13:13)
[2019-05-17] MEDS ORDERED: DILTIAZEM HCL 90 MG TABLET PO SCH ×2 (14:00)
[2019-05-17 15:58] LABS: CREATINE KINASE MB 0.89 ng/mL (<4.55)
[2019-05-17 15:59] LABS: TROPONIN I < 0.012 ng/mL
--- NOTE | 2019-05-17 20:39 | EKG REPORT ---
SEVERITY:- NORMAL ECG - SINUS RHYTHM : Confirmed by: Vira Oneill MD 17-May-2019 20:39:12
[2019-05-17] MEDS: ENOXAPARIN SODIUM INJ 100 MG/1 ML DISP.SYRIN SUBCUT SCH (21:48)
--- NOTE | 2019-05-17 22:04 | PDOC CONSULTATION ---
Consultation-Blank Consultation: CARDIOLOGY CONSULTATION by Dr. Vira Oneill on 05/17/2019. Patient seen at 9 AM on 05/17/2019. REASON FOR CONSULTATION: Atrial fibrillation new onset. [Paroxysmal atrial fibrillation] CONSULT REQUESTING PHYSICIAN: Elizabeth Ritu FORMERLY [facility] HISTORY of PRESENT ILLNESS Past Medical History Cardiac Medical History: Reports: Hypertension Denies: Coronary Artery Disease, DVT, Myocardial Infarction, Hyperlipidema Pulmonary Medical History: Denies: Asthma, Chronic Obstructive Pulmonary Disease (COPD) EENT Medical History: Denies: Cataracts, Nose - Allergic rhinitis Neurological Medical History: Denies: Hemorrhagic CVA, Ischemic CVA, Multiple Sclerosis, Seizures Endocrine Medical History: Reports: Obesity Denies: Diabetes Mellitus Type 1, Diabetes Mellitus Type 2, Hyperthyroidism, Hypothyroidism Renal/ Medical History: Denies: Chronic Kidney Disease, Nephrolithiasis Malignancy Medical History: Reports: None GI Medical History: Reports: Other - Hemorrhoids Denies: Cirrhosis, Crohn's Disease, Hepatitis, Ulcerative Colitis Musculoskeltal Medical History: Denies: Arthritis, Gout Skin Medical History: Denies: Eczema, Psoriasis Psychiatric Medical History: Reports: Depression, Tobacco Dependency Denies: Alcohol Dependency, Substance Abuse Traumatic Medical History: Reports: None Hematology: Denies: Anemia, Bleeding Tendencies Infectious Medical History: Reports: None Past Surgical History Past Surgical History: Reports: Appendectomy Social History Information Source: Patient Lives with: Spouse/Significant other Smoking Status: Current Every Day Smoker Frequency of Alcohol Use: Occasional Hx Recreational Drug Use: No Drugs: None Hx Prescription Drug Abuse: No - Advance Directive Resuscitation Status: Full Code. Surrogate healthcare decision maker:: Ellie Griffith Family History Family History: DM, Hypertension, Malignancy. denies: CAD Parental Family History Reviewed: Yes Children Family History Reviewed: No Sibling(s) Family History Reviewed.: Yes Medication/Allergy Home Medications: Amlodipine Besylate 5 mg PO DAILY 05/31/18 Hydrocodone/Acetaminophen [[place] 5-325 mg Tablet] 1 tab PO Q6H #10 tablet 05/31/18 Hydrocortisone Acetate [Anusol Hc 25 mg Supp.rect] 1 supp.rect OR BID #14 supp.rect 05/31/18 Lisinopril/Hydrochlorothiazide [Lisinopril-Hctz 20-25 mg Tab] 1 each PO DAILY 05/31/18 Phenyleph/Mineral Oil/Petrolat [Preparation H Ointment] 28 gm RC BID #1 tube 05/31/18 Allergies/Adverse Reactions: No Known Allergies Allergy (Verified 05/31/18 09:25) Review of Systems Constitutional: ABSENT: chills, fever(s) Eyes: ABSENT: visual disturbances, other - Eye pain Ears: ABSENT: hearing changes, other - Ear pain Nose, Mouth, and Throat: ABSENT: mouth pain, sore throat Cardiovascular: PRESENT: as per HPI, chest pain - Chest tightness with nausea vomiting and dizziness. ABSENT: palpitations Respiratory: ABSENT: cough, dyspnea Gastrointestinal: PRESENT: nausea, vomiting. ABSENT: abdominal pain, constipation, diarrhea, hematemesis Genitourinary: ABSENT: dysuria, hematuria Musculoskeletal: ABSENT: back pain, joint swelling, muscle weakness Integumentary: ABSENT: pruritus, rash Neurological: PRESENT: as per HPI, dizziness, vertigo. ABSENT: confusion, convulsions, focal weakness, memory loss, syncope Psychiatric: ABSENT: anxiety, depression Endocrine: ABSENT: cold intolerance, heat intolerance Hematologic/Lymphatic: ABSENT: easy bleeding, easy bruising
[2019-05-18] MEDS: SOTALOL HCL 80 MG TABLET PO SCH ×2 (00:50→10:17)
[2019-05-18] MEDS: MECLIZINE HCL 25 MG TABLET PO PRN ×2 (03:22→20:18)
[2019-05-18 09:11] LABS: HEMATOCRIT 40.4 % (37.9-51.0); HEMOGLOBIN 13.8 g/dL (13.5-17.0); MEAN CORPUSCULAR HEMOGLOBIN 30.1 pg (27.0-33.4); MEAN CORPUSCULAR HGB CONC 34.1 g/dL (32.0-36.0); MEAN CORPUSCULAR VOLUME 88 fl (80-97); PLATELET COUNT 205 10^3/uL (150-450); RED BLOOD COUNT 4.59 10^6/uL (4.35-5.55); RED CELL DISTRIBUTION WIDTH 13.9 % (11.5-14.0); WHITE BLOOD COUNT 7.1 10^3/uL (4.0-10.5)
[2019-05-18 09:34] LABS: ANION GAP 13 (5-19); BLOOD UREA NITROGEN 12 mg/dL (7-20); CALCIUM 8.9 mg/dL (8.4-10.2); CARBON DIOXIDE 24 mmol/L (22-30); CHLORIDE 102 mmol/L (98-107); GLUCOSE 113 mg/dL (75-110); POTASSIUM 3.9 mmol/L (3.6-5.0)
[2019-05-18] MEDS: FAMOTIDINE INJ/PF 20 MG/2 ML SDV IV SCH (10:16)
[2019-05-18] MEDS: DOCUSATE SODIUM 100 MG CAPSULE PO SCH ×2 (10:17→17:47)
[2019-05-18] MEDS: LISINOPRIL 10 MG TABLET PO SCH (10:17)
[2019-05-18] MEDS: ENOXAPARIN SODIUM INJ 100 MG/1 ML DISP.SYRIN SUBCUT SCH ×2 (10:19→23:01)
--- NOTE | 2019-05-18 11:18 | PDOC PROGRESS REPORT ---
Subjective Progress Note for:: 05/18/19 Subjective:: Patient was admitted on 05/16/2019 at approximately 2200 hrs. patient was admitted for acute vertigo, patient evidently had had only 10 cups of coffee earlier that day. Patient was driving and suddenly turned his head to the right when he had acute onset of vertigo as well as vomiting. Patient presented to the emergency room he was found to be in atrial fib with rapid ventricular rate patient was put on IV Cardizem. Patient was supposed to be taken Norvasc 5 mill grams a day and lisinopril and HCTZ 20/25 however due to financial difficulty he was not taking his medication patient stated he had a history of hypertension. Patient states his had a history of vertigo off and on for 6 years. Patient states that they told him his vertigo was secondary to his hypertension.. 05/18/2019 patient has been seen by cardiology placed on sotalol, 40 mg every 12 hours. They would like to watch him for the next 24 hours to ensure he does not have any complications from the medication. Patient is doing well, when he came in his pulse was 137 and is now 64 for the last 24 hours. His hemoglobin A1c is 5 his thyroid functions are normal. No chest pain. Reason For Visit: NEW ONSET ATRIAL FIBRILLATION WITH RAPID Physical Exam Vital Signs: Temp Pulse Resp BP Pulse Ox 97.3 F 69 12 120/77 97 05/18/19 08:12 05/18/19 08:12 05/18/19 08:12 05/18/19 08:12 05/18/19 08:12 Intake & Output 05/17/19 05/18/19 05/19/19 06:59 06:59 06:59 Intake Total 1053 1771 Output Total 125 Balance 1053 1646 Weight 87.4 kg 88.6 kg General appearance: PRESENT: no acute distress, well-developed, well-nourished Respiratory exam: PRESENT: clear to auscultation haylee. ABSENT: rales, rhonchi, wheezes Cardiovascular exam: PRESENT: RRR, other - Regular rate and rhythm, no shortness of breath, no palpitations. ABSENT: diastolic murmur, rubs, systolic murmur Neurological exam: PRESENT: alert, awake, oriented to person, oriented to place, oriented to time, oriented to situation, CN II-XII grossly intact. ABSENT: motor sensory deficit Psychiatric exam: PRESENT: appropriate affect, normal mood. ABSENT: homicidal ideation, suicidal ideation Results Laboratory Results: 05/18/19 08:37 05/18/19 08:37 05/18/19 05/18/19 08:37 08:37 WBC 7.1 RBC 4.59 Hgb 13.8 Hct 40.4 MCV 88 MCH 30.1 MCHC 34.1 RDW 13.9 Plt Count 205 Sodium 138.6 Potassium 3.9 Chloride 102 Carbon Dioxide 24 Anion Gap 13 BUN 12 Creatinine 0.88 Est GFR ( Amer) > 60 Glucose 113 H Calcium 8.9 Magnesium 2.0 05/16/19 05/16/19 05/17/19 20:50 20:50 02:47 Creatine Kinase 160 CK-MB (CK-2) 1.13 Troponin I < 0.012 < 0.012 05/17/19 05/17/19 05/17/19 02:47 09:34 09:34 Creatine Kinase 130 130 CK-MB (CK-2) 1.13 Troponin I < 0.012 05/17/19 15:11 Creatine Kinase CK-MB (CK-2) 0.89 Troponin I < 0.012 Impressions: Chest X-Ray 05/16/19 00:00 IMPRESSION: 1. No acute pulmonary findings. Head MRI 05/17/19 00:00 IMPRESSION: NORMAL MRI OF THE BRAIN WITHOUT INTRAVENOUS GADOLINIUM CONTRAST. EVIDENCE OF ACUTE STROKE: NO. Assessment and Plan - Diagnosis (1) Atrial fibrillation with RVR Is this a current diagnosis for this admission?: Yes Plan: Patient will have serial cardiac enzymes and EKGs performed. He will be treated with Lovenox 1 mg/kg every 12 hours as initial embolic protection. A cardiology consultation will be obtained with Dr. Oneill. Patient will use morphine sulfate 2 to 4 mg IV every 2 hours on a as needed basis for chest pain. He will be monitored on the IMCU floor and he will be treated with a diltiazem infusion per protocol until oral agents have been effective at controlling his heart rate and blood pressure. 05/17/2019 patient was on a Cardizem drip and converted this morning at 0 600 from a rate of 114 down to 73. Patient is currently asymptomatic. Patient is currently taking Lovenox 100 mg subcu every 12 hours patient was also started on Prinivil 10 mg daily and sotalol 40 mg every 12 hours 05/18/2019 patient's heart rate is 64 and regular no observe another 18 to 24 hours. If patient maintains sinus rhythm will DC in the morning. Patient is asymptomatic (2) Hypertension Qualifiers: Hypertension type: essential hypertension Qualified Code(s): I10 - Essential (primary) hypertension Is this a current diagnosis for this admission?: Yes Plan: Patient with therapeutic treatment will be adjusted for control of his atrial fibrillation with rapid ventricular response using Cardizem and metoprolol XL. 05/17/2019 his blood pressure in the emergency room on arrival was 187/114, it is come down through the night and this morning it is 125/73. It had been as low as 95/66 earlier this morning. 05/18/2019 patient's blood pressure this morning is 120/77 (3) Vertigo Is this a current diagnosis for this admission?: Yes Plan: Patient will be continued on meclizine orally for control of his vertigo and dizziness. Further evaluation will be considered if the symptoms do not resolve or show some evidence of lateralization. 05/17/2019 patient will use meclizine on a as needed basis. 05/18/2019 no complaints of vertigo. Patient is not using the meclizine - Time Time Spent with patient: 25-34 minutes
--- NOTE | 2019-05-18 12:26 | EKG REPORT ---
SEVERITY:- BORDERLINE ECG - SINUS RHYTHM BORDERLINE T ABNORMALITIES, INFERIOR LEADS : Confirmed by: Vira Oneill MD 18-May-2019 12:25:02
[2019-05-18 19:50] LABS: APPEARANCE,URINE CLEAR; BILIRUBIN,URINE NEGATIVE (NEGATIVE); COLOR,URINE YELLOW; GLUCOSE, URINE NEGATIVE (NEGATIVE); KETONES,URINE NEGATIVE (NEGATIVE); LEUKOCYTE ESTERASE,URINE NEGATIVE (NEGATIVE); NITRITE,URINE NEGATIVE (NEGATIVE); PROTEIN,URINE NEGATIVE (NEGATIVE); URINE SPECIFIC GRAVITY 1.008; UROBILINOGEN,URINE NEGATIVE mg/dL (<2.0)
--- NOTE | 2019-05-18 20:55 | Progress Note ---
Provider Note Provider Note: CARDIOLOGY PROGRESS NOTE by Dr. Vria Samayoa on 05/18/2019. SUBJECTIVE: The patient remains in sinus rhythm. His QTC is acceptable. There is no proarrhythmias seen with sotalol. The patient has some mild dizziness secondary to his in a year problem. His blood pressure is well controlled. PHYSICAL EXAMINATION: The patient is well-built and well-nourished. He is in no acute distress. Selected Entries 05/18/19 08:12 Temperature 97.3 F Temperature Oral Source Pulse Rate 69 Respiratory 12 Rate Blood Pressure 120/77 Blood Pressure 91 Mean BP Location Left Arm BP Position Sitting O2 Sat by Pulse 97 Oximetry Oxygen Delivery Room Air Method HEAD: Is atraumatic normocephalic. EYES: Pupils are equal round regular reactive to light and accommodation. Extraocular movements are normal. There is no conjunctival pallor. There is no scleral icterus. EARS: Tympanic memb ranes are intact. External auditory canals are clear. NOSE: Nasal mucous membranes are without any inflammation. There is no deviated nasal. MOUTH: Mucous membranes of the mouth are moist. Tongue is moist. There is no ulcers. There is no bleeding from the gums. THROAT: There is no redness of the oropharynx. There is no exudates. SKIN: There is no skin rashes or skin lesions. There is no particular ecchymosis. NECK: Is supple. There is no JVD. Carotids are equal there is no bruit. There is no lymphadenopathy. There is no goiter. There is no accessory muscle respiration use. Trachea central. LUNGS: IS CLEAR TO AUSCULTATION PERCUSSION WITHOUT ANY RHONCHI RALES OR WHEEZING. Heart: S1-S2 is heard there is no S3 gallop there is no S4 gallop. Systolic murmur left sternal border and the apex there is no rub. ABDOMEN: Is soft. Nontender. There is no hepatosplenomegaly. Bowel sounds are well heard. There is no tender areas masses. EXTREMITIES: Femorals are well felt. There is no femoral bruits. Leg pulses are well felt. There is no pedal edema. There is no DVT or cellulitis. There is no calf tenderness. There is no cyanosis or clubbing. FINISH MENDER: The patient is conscious awake alert oriented x3 with no focal deficit. PSYCHIATRIC: The patient judgment insight are intact his affect is normal. Labs- All tests 24 hr 05/18/19 05/18/19 05/18/19 08:37 08:37 19:25 WBC 7.1 RBC 4.59 Hgb 13.8 Hct 40.4 MCV 88 MCH 30.1 MCHC 34.1 RDW 13.9 Plt Count 205 Sodium 138.6 Potassium 3.9 Chloride 102 Carbon Dioxide 24 Anion Gap 13 BUN 12 Creatinine 0.88 Est GFR ( Amer) > 60 Est GFR (MDRD) Non-Af > 60 Glucose 113 H Calcium 8.9 Magnesium 2.0 Urine Color YELLOW Urine Appearance CLEAR Urine pH 5.0 Ur Specific [place] 1.008 Urine Protein NEGATIVE Urine Glucose (UA) NEGATIVE Urine Ketones NEGATIVE Urine Blood NEGATIVE Urine Nitrite NEGATIVE Urine Bilirubin NEGATIVE Urine Urobilinogen NEGATIVE Ur Leukocyte Esterase NEGATIVE Urine WBC (Auto) 0 Urine RBC (Auto) 0 Urine Mucus (Auto) RARE Urine Ascorbic Acid NEGATIVE Chest X-Ray 05/16/19 00:00 IMPRESSION: 1. No acute pulmonary findings. Head MRI 05/17/19 00:00 IMPRESSION: NORMAL MRI OF THE BRAIN WITHOUT INTRAVENOUS GADOLINIUM CONTRAST. EVIDENCE OF ACUTE STROKE: NO. IMPRESSION/RECOMMENDATION: 1. Paroxysmal atrial fibrillation. At present is in sinus rhythm. Continue sotalol. Continue aspirin 325 mg p.o. daily. Have discussed the option of chronic anti-correlation therapy versus aspirin. Patient prefers prefers to be on aspirin. 2. Vertigo most likely secondary to inner ear problem. The patient states that he has right in a year problem. 3. Hypertension: Blood pressure well controlled. Medications reviewed. Management plan discussed with attending physician on the case. Medical decision making is of moderate complexity. We will continue to watch the patient on sotalol. If there is no proarrhythmias will discharge the patient in the a.m. 40 minutes spent on the patient with more than 50% of time spent in direct patient care.. Will follow
[2019-05-18] MEDS: FAMOTIDINE 20 MG TABLET PO SCH (23:01)
[2019-05-19] MEDS: SOTALOL HCL 80 MG TABLET PO SCH ×2 (00:28→09:17)
[2019-05-19 05:21] LABS: HEMATOCRIT 40.1 % (37.9-51.0); HEMOGLOBIN 13.6 g/dL (13.5-17.0); MEAN CORPUSCULAR HEMOGLOBIN 29.7 pg (27.0-33.4); MEAN CORPUSCULAR HGB CONC 33.8 g/dL (32.0-36.0); MEAN CORPUSCULAR VOLUME 88 fl (80-97); PLATELET COUNT 199 10^3/uL (150-450); RED BLOOD COUNT 4.56 10^6/uL (4.35-5.55); RED CELL DISTRIBUTION WIDTH 13.9 % (11.5-14.0); WHITE BLOOD COUNT 5.7 10^3/uL (4.0-10.5)
[2019-05-19 05:52] LABS: ANION GAP 10 (5-19); BLOOD UREA NITROGEN 13 mg/dL (7-20); CALCIUM 8.5 mg/dL (8.4-10.2); CARBON DIOXIDE 27 mmol/L (22-30); CHLORIDE 103 mmol/L (98-107); GLUCOSE 87 mg/dL (75-110); POTASSIUM 4.2 mmol/L (3.6-5.0)
[2019-05-19] MEDS: DOCUSATE SODIUM 100 MG CAPSULE PO SCH (09:17)
[2019-05-19] MEDS: FAMOTIDINE 20 MG TABLET PO SCH (09:17)
[2019-05-19] MEDS: ENOXAPARIN SODIUM INJ 100 MG/1 ML DISP.SYRIN SUBCUT SCH (09:18)
[2019-05-19] MEDS: LISINOPRIL 10 MG TABLET PO SCH (09:18)
[2019-05-19 10:36] VITALS: BP 187/114
--- NOTE | 2019-05-19 15:13 | PDOC DISCHARGE SUMMARY ---
General - Admit/Disc Date/PCP Admission Date/Primary Care Provider: 05/16/19 22:38 Admission date 05/16/2019 for palpitations Discharge Date: 05/19/19 - Discharge Diagnosis (1) Atrial fibrillation with RVR Is this a current diagnosis for this admission?: Yes Summary: Patient 44-year-old male who was admitted to the hospital with fairly vertigo however patient was found to be in atrial fib with RVR. Cardizem drip converted to normal sinus rhythm . While in the hospital patient was seen by cardiology recommended switching the patient to sotalol 40 mg every 12 hours. Patient was discharged home also on lisinopril 10 mg daily, and aspirin daily (2) Hypertension Is this a current diagnosis for this admission?: Yes Summary: Patient was discharged home on lisinopril 10 mg a day patient taking this in the past but stopped it on his own due to financial constraints. Patient's blood pressure in the hospital remained stable (3) Vertigo Is this a current diagnosis for this admission?: Yes Summary: Patient only use 1 or 2 doses of meclizine while in the hospital. Patient's vertigo cleared as soon as his blood pressure became controlled and when he was back in normal sinus rhythm - Additional Information Resuscitation Status: Full Code Discharge Diet: As Tolerated Discharge Activity: Balance Activity w/Rest Prescriptions: Sotalol HCl [Betapace 80 mg Tablet] 40 mg PO Q12 30 Days #60 tablet Lisinopril [Prinivil 10 mg Tablet] 10 mg PO DAILY 30 Days #30 tablet Home Medications: Lisinopril [Prinivil 10 mg Tablet] 10 mg PO DAILY 30 Days #30 tablet 05/19/19 Sotalol HCl [Betapace 80 mg Tablet] 40 mg PO Q12 30 Days #60 tablet 05/19/19 History of Present Illness Patient complains of: Palpitations, vertigo History of Present Illness: CIELO RICO is a 44 year old male Hospital Course Hospital Course: She admitted on 821 for vertigo and palpitations. Patient converted following IV Cardizem. Patient seen by cardiology and placed on sotalol 40 mg every 12 hours patient discharged home on this medication plus lisinopril 10 mg a day Physical Exam Vital Signs: Temp Pulse Resp BP Pulse Ox 97.6 F 71 16 187/114 H 95 05/19/19 10:35 05/19/19 10:35 05/19/19 10:35 05/19/19 10:35 05/19/19 10:35 Intake & Output 05/18/19 05/19/19 05/20/19 06:59 06:59 06:59 Intake Total 1771 1701 Output Total 125 700 Balance 1646 1001 Weight 88.6 kg 86.9 kg General appearance: PRESENT: no acute distress Respiratory exam: PRESENT: clear to auscultation haylee. ABSENT: rales, rhonchi, wheezes Cardiovascular exam: PRESENT: RRR. ABSENT: diastolic murmur, rubs, systolic murmur Neurological exam: PRESENT: alert, awake, oriented to person, oriented to place, oriented to time, oriented to situation, CN II-XII grossly intact. ABSENT: motor sensory deficit Psychiatric exam: PRESENT: appropriate affect, normal mood. ABSENT: homicidal ideation, suicidal ideation Results Laboratory Results: 05/19/19 04:29 05/19/19 04:29 05/18/19 05/19/19 05/19/19 19:25 04:29 04:29 WBC 5.7 RBC 4.56 Hgb 13.6 Hct 40.1 MCV 88 MCH 29.7 MCHC 33.8 RDW 13.9 Plt Count 199 Sodium 139.9 Potassium 4.2 Chloride 103 Carbon Dioxide 27 Anion Gap 10 BUN 13 Creatinine 0.92 Est GFR ( Amer) > 60 Glucose 87 Calcium 8.5 Magnesium 2.1 Urine Color YELLOW Urine Appearance CLEAR Urine pH 5.0 Ur Specific [place] 1.008 Urine Protein NEGATIVE Urine Glucose (UA) NEGATIVE Urine Ketones NEGATIVE Urine Blood NEGATIVE Urine Nitrite NEGATIVE Ur Leukocyte Esterase NEGATIVE Urine WBC (Auto) 0 Urine RBC (Auto) 0 05/16/19 05/16/19 05/17/19 20:50 20:50 02:47 Creatine Kinase 160 CK-MB (CK-2) 1.13 Troponin I < 0.012 < 0.012 05/17/19 05/17/19 05/17/19 02:47 09:34 09:34 Creatine Kinase 130 130 CK-MB (CK-2) 1.13 Troponin I < 0.012 05/17/19 15:11 Creatine Kinase CK-MB (CK-2) 0.89 Troponin I < 0.012 Impressions: Chest X-Ray 05/16/19 00:00 IMPRESSION: 1. No acute pulmonary findings. Head MRI 05/17/19 00:00 IMPRESSION: NORMAL MRI OF THE BRAIN WITHOUT INTRAVENOUS GADOLINIUM CONTRAST. EVIDENCE OF ACUTE STROKE: NO. Qualifiers - * PATIENT BEING DISCHARGED WITH ANY OF THE FOLLOWING DIAGNOSIS: No Acute Heart Failure - Is this a Heart Failure Patient?: No Plan Time Spent: Greater than 30 Minutes - Is to follow-up with Dr. Oneill as well as the [facility]. Patient will take his lisinopril aspirin and sotalol daily and will return to emergency room for any chest pain or palpitations
--- NOTE | 2019-05-19 19:07 | EKG REPORT ---
SEVERITY:- NORMAL ECG - SINUS RHYTHM : Confirmed by: Vira Oneill MD 19-May-2019 19:06:53
== END 2019-05-19 11:05 | disposition home or self-care (01) | DRG 310 ==
LOC: ER 20:29 → EH 22:38 → 3W 23:58
PROVIDERS: ADMIT Emergency Medicine; ATTEND Emergency Medicine
DX: I48.0 Paroxysmal atrial fibrillation (principal); I10 Essential (primary) hypertension; R42 Dizziness and giddiness; E66.9 Obesity, unspecified; F32.9 Major depressive disorder, single episode, unspecified; F17.200 Nicotine dependence, unspecified, uncomplicated; F41.9 Anxiety disorder, unspecified; Z60.2 Problems related to living alone; Z79.899 Other long term (current) drug therapy; Z79.891 Long term (current) use of opiate analgesic; Z83.3 Family history of diabetes mellitus; Z82.49 Family history of ischemic heart disease and other diseases of the circulatory system; Z80.9 Family history of malignant neoplasm, unspecified
CPT/HCPCS: 36415; 70551; 71045; 80048; 80053; 80061; 80307; 81001; 82550; 82553; 82962; 83036; 83735; 84439; 84443; 84481; 84484; 85025; 85027; 93005; 93010; 96361; 96365; 96375; 96376; 99285; J1650; J2060; J3490; J7030; S0028

== ENCOUNTER 2019-11-07 09:55 | Emergency (ER) | payer OTHER ==
[2019-11-07] MEDS ORDERED: DIPH/PERTUSS(ACELL)/TETANUS VAC/PF 0.5 ML SYR (>=10YO) IM ONE (11:50)
--- NOTE | 2019-11-07 11:52 | ER Document Report ---
ED Medical Screen (RME) - General Chief Complaint: Hand Injury Stated Complaint: LEFT HAND FINGER INJURY Time Seen by Provider: 11/07/19 11:48 Mode of Arrival: Ambulatory Information source: Patient Notes: Patient presents emergency department with laceration to left index finger that happened at work. Unsure of last tetanus. Patient is right-handed. Laceration to the PIP approximately 1 to 2 cm with some bleeding. Patient reports some difficulty bending the finger. I have greeted and performed a rapid initial assessment of this patient. A comprehensive ED assessment and evaluation of the patient, analysis of test results and completion of the medical decision making process will be conducted by additional ED providers. TRAVEL OUTSIDE OF THE [place] IN LAST 30 DAYS: No - Related Data Allergies/Adverse Reactions: No Known Allergies Allergy (Verified 05/31/18 09:25) Past Medical History - Past Medical History Cardiac Medical History: Reports: Hx Hypertension Denies: Hx Coronary Artery Disease, Hx DVT, Hx Heart Attack, Hx Hypercholesterolemia Pulmonary Medical History: Denies: Hx Asthma, Hx COPD Neurological Medical History: Denies: Hx Seizures Endocrine Medical History: Denies: Hx Diabetes Mellitus Type 1, Hx Diabetes Mellitus Type 2, Hx Hyperthyroidism, Hx Hypothyroidism Renal/ Medical History: Denies: Hx Peritoneal Dialysis GI Medical History: Denies: Hx Cirrhosis, Hx Crohn's Disease, Hx Hepatitis, Hx Ulcerative Colitis Musculoskeltal Medical History: Denies Hx Arthritis, Denies Hx Gout Skin Medical History: Denies Hx Eczema, Denies Hx Psoriasis Psychiatric Medical History: Reports: Hx Anxiety, Hx Depression Infectious Medical History: Denies: Hx Hepatitis Past Surgical History: Reports: Hx Appendectomy - Immunizations Immunizations up to date: Yes Physical Exam - Vital signs Vitals: Temp Pulse Resp BP Pulse Ox 97.8 F 77 18 163/116 H 97 11/07/19 10:34 11/07/19 10:34 11/07/19 10:34 11/07/19 10:34 11/07/19 10:34 Course - Vital Signs Vital signs: Temp Pulse Resp BP Pulse Ox 97.8 F 77 18 163/116 H 97 11/07/19 10:34 11/07/19 10:34 11/07/19 10:34 11/07/19 10:34 11/07/19 10:34
--- NOTE | 2019-11-07 12:41 | RADIOLOGY REPORT (SQ) ---
EXAM DESCRIPTION: FINGER LEFT COMPLETED DATE/TIME: 11/07/2019 12:28 pm REASON FOR STUDY: LACERATION LEFT INDEX FINGER COMPARISON: None. NUMBER OF VIEWS: Three views. TECHNIQUE: AP, lateral, and oblique images acquired of the left second finger. LIMITATIONS: None. FINDINGS: MINERALIZATION: Normal. BONES: No acute fracture or dislocation. No worrisome bone lesions. SOFT TISSUES: No radiopaque foreign body. Soft tissue swelling about the index finger. OTHER: No other significant finding. IMPRESSION: Soft tissue swelling about the index finger. No radiopaque foreign body or acute bony a bnormality. TECHNICAL DOCUMENTATION: JOB ID: [id number] 2010 [employer]- All Rights Reserved Reading location - IP/workstation name: [email or web address]
[2019-11-07 12:58] LABS: URINE AMPHETAMINES SCREEN NEGATIVE; URINE BARBITURATES SCREEN NEGATIVE; URINE BENZODIAZEPINES SCREEN NEGATIVE; URINE COCAINE SCREEN NEGATIVE; URINE MARIJUANA (THC) SCREEN NEGATIVE; URINE METHADONE SCREEN NEGATIVE; URINE PHENCYCLIDINE SCREEN NEGATIVE
[2019-11-07] MEDS ORDERED: LIDOCAINE 1% INJ-PF (10 MG/ML) 30 ML SDV INJ ONE (13:18)
--- NOTE | 2019-11-07 13:21 | ER Document Report ---
ED General - General Chief Complaint: Laceration Stated Complaint: LEFT HAND FINGER INJURY Time Seen by Provider: 11/07/19 11:48 Mode of Arrival: Ambulatory Notes: 44 y/o male presents with 1.5 cm laceration to left index finger that occurred at 0945 this morning. 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 Pt is right handed. Pt was unsure of his tetanus status and this was updated in triage today. TRAVEL OUTSIDE OF THE [place] IN LAST 30 DAYS: No - Related Data Allergies/Adverse Reactions: No Known Allergies Allergy (Verified 11/07/19 13:32) Past Medical History - General Information source: Patient - Social History Smoking Status: Never Smoker Chew tobacco use (# tins/day): Yes Frequency of alcohol use: Social Drug Abuse: None Family History: Reviewed & Not Pertinent, Hypertension - Borderline, not on any medications Patient has suicidal ideation: No Patient has homicidal ideation: No - Past Medical History Cardiac Medical History: Reports: Hx Hypertension Denies: Hx Coronary Artery Disease, Hx DVT, Hx Heart Attack, Hx Hypercholesterolemia Pulmonary Medical History: Denies: Hx Asthma, Hx COPD Neurological Medical History: Denies: Hx Seizures Endocrine Medical History: Denies: Hx Diabetes Mellitus Type 1, Hx Diabetes Mellitus Type 2, Hx Hyperthyroidism, Hx Hypothyroidism Renal/ Medical History: Denies: Hx Peritoneal Dialysis GI Medical History: Denies: Hx Cirrhosis, Hx Crohn's Disease, Hx Hepatitis, Hx Ulcerative Colitis Musculoskeletal Medical History: Denies Hx Arthritis, Denies Hx Gout Skin Medical History: Denies Hx Eczema, Denies Hx Psoriasis Psychiatric Medical History: Reports: Hx Anxiety, Hx Depression Infectious Medical History: Denies: Hx Hepatitis Past Surgical History: Reports: Hx Appendectomy - Immunizations Immunizations up to date: Yes Review of Systems - Review of Systems Notes: Constitutional: Negative for fever. HENT: Negative for sore throat. Eyes: Negative for visual changes. Cardiovascular: Negative for chest pain. Respiratory: Negative for shortness of breath. Gastrointestinal: Negative for abdominal pain, vomiting or diarrhea. Genitourinary: Negative for dysuria. Musculoskeletal: Negative for back pain. Skin: Positive for laceration. Negative for rash. Neurological: Negative for headaches, weakness or numbness. 10 point ROS negative except as marked above and in HPI. Physical Exam - Vital signs Vitals: Temp Pulse Resp BP Pulse Ox 97.8 F 77 18 163/116 H 97 11/07/19 10:34 11/07/19 10:34 11/07/19 10:34 11/07/19 10:34 11/07/19 10:34 - Notes Notes: GENERAL: Well-appearing, well-nourished and in no acute distress. HEAD: Atraumatic, normocephalic. EYES: Extraocular movements intact, sclera anicteric, conjunctiva are normal. NECK: Normal range of motion, supple without lymphadenopathy or JVD. EXTREMITIES: Approximately 1.5 cm laceration noted to left index finger at the PIP. Normal range of motion, no pitting or edema. No clubbing or cyanosis. NEUROLOGICAL: Cranial nerves II through XII grossly intact. Normal speech, normal gait. PSYCH: Normal mood, normal affect. SKIN: Warm, Dry, normal turgor, no rashes or lesions noted. Course - Re-evaluation Re-evalutation: 11/07/19 nontoxic, well-appearing 44-year-old male presents with laceration to his left index finger. It is approximately 1.5 cm. Patient has full range of motion of the index finger. X-ray shows no foreign bodies or fractures. Tetanus shot was given in triage. 11/07/19 14:10 #7 sutures placed in left index finger. Pt tolerated procedure well. Strict return precautions discussed. Pt to wear metal splint while at work. Pt also to return to ER or urgent care in 7-10 days for suture removal. Pt voices understanding and agrees with plan of care. - Vital Signs Vital signs: Temp Pulse Resp BP Pulse Ox 97.8 F 77 18 163/116 H 97 11/07/19 10:34 11/07/19 10:34 11/07/19 10:34 11/07/19 10:34 11/07/19 10:34 Procedures - Laceration/Wound Repair Left 2nd digit Wound length (cm): 1.5 Wound's Depth, Shape: Superficial, Linear, Flap Laceration pre-procedure: Sterile PPE donned, Shur-Clens applied Anesthetic type: 1% Lidocaine Wound explored: Clean Wound Repaired With: Sutures Suture Size/Type: 4:0, Prolene Number of Sutures: 7 Post-procedure wound care: Splint applied - Metal splint Post-procedure NV exam normal: Yes Complications: No Discharge - Discharge Clinical Impression: Laceration of left index finger w/o foreign body w/o damage to nail Qualifiers: Encounter type: initial encounter Qualified Code(s): S61.211A - Laceration without foreign body of left index finger without damage to nail, initial encounter Condition: Stable Disposition: HOME, SELF-CARE Instructions: Antibiotic Ointment Protection ([facility]), Laceration Care ([facility]), Soap Cleansing ([facility]), Tetanus Immunization Given ([facility]) Additional Instructions: Please keep area clean. Watch for signs of infection: redness, swelling, increased pain, pus drainage, area being hotter to touch than surrounding skin. Please go to urgent care or ER in 7-10 days for suture removal. Return immediately to ER if you start having any worsening symptoms, including fever, signs of infection, sutures coming out, or any other symptoms that are concerning to you. Forms: Return to Work
[2019-11-07 14:59] VITALS: BP 147/86
== END 2019-11-07 15:07 | disposition home or self-care (01) ==
LOC: ER 09:55
DX: S61.211A Laceration without foreign body of left index finger without damage to nail, initial encounter (principal); W26.0XXA Contact with knife, initial encounter; Y99.0 Civilian activity done for income or pay; Z23 Encounter for immunization; I10 Essential (primary) hypertension
CPT/HCPCS: 80307; 73140; 90715; 12001; J3490

== ENCOUNTER 2020-01-06 08:03 | Emergency (ER) | payer SELFPAY ==
[2020-01-06] MEDS ORDERED: LISINOPRIL 10 MG TABLET PO ONE (09:39)
[2020-01-06] MEDS ORDERED: SOTALOL HCL 80 MG TABLET PO ONE (09:39)
--- NOTE | 2020-01-06 09:40 | ER Document Report ---
HPI - HPI Time Seen by Provider: 01/06/20 09:01 Pain Level: 1 Context: Patient states that he was at work and started to think about home issues and became anxious and started to have a breakdown and started to cough when he became emotional. Patient's employer informed patient that he could not work like that he needed to be checked. Patient states he has had a history of anxiety in the past. Patient states that a long-term roommate recently moved out leaving him with the burden of financial responsibility as well as breaking their relationship. Patient denies any recent travel or immobilization. Patient denies any history of PE or DVT. Patient does have a history of high blood pressure and recently ran out of his medications 3 days ago. Associated Symptoms: Nonproductive cough - Only with anxiety symptoms. denies: Fever, Headache, Nausea, Vomiting Exacerbated by: Other - Anxiety Relieved by: Denies Similar symptoms previously: Yes Recently seen / treated by doctor: No - ROS ROS below otherwise negative: Yes Systems Reviewed and Negative: Yes All other systems reviewed and negative - CONSTITUTIONAL Constitutional: DENIES: Fever, Chills - EENT EENT: DENIES: Sore Throat - NEURO Neurology: DENIES: Headache - RESPIRATORY Respiratory: REPORTS: Coughing - GASTROINTESTINAL Gastrointestinal: DENIES: Patient vomiting - REPRODUCTIVE Reproductive: DENIES: : - DERM Skin Color: Normal Skin Problems: None Past Medical History - General Information source: Patient - Social History Smoking Status: Former Smoker Chew tobacco use (# tins/day): Yes Frequency of alcohol use: Social Drug Abuse: None Lives with: Alone Family History: Reviewed & Not Pertinent, Hypertension - Borderline, not on any medications Patient has suicidal ideation: No Patient has homicidal ideation: No - Past Medical History Cardiac Medical History: Reports: Hx Hypertension Denies: Hx Coronary Artery Disease, Hx DVT, Hx Heart Attack, Hx Hypercholesterolemia Pulmonary Medical History: Denies: Hx Asthma, Hx COPD Neurological Medical History: Denies: Hx Seizures Endocrine Medical History: Denies: Hx Diabetes Mellitus Type 1, Hx Diabetes Mellitus Type 2, Hx Hyperthyroidism, Hx Hypothyroidism Renal/ Medical History: Denies: Hx Peritoneal Dialysis GI Medical History: Denies: Hx Cirrhosis, Hx Crohn's Disease, Hx Hepatitis, Hx Ulcerative Colitis Musculoskeletal Medical History: Denies Hx Arthritis, Denies Hx Gout Skin Medical History: Denies Hx Eczema, Denies Hx Psoriasis Psychiatric Medical History: Reports: Hx Anxiety, Hx Depression Infectious Medical History: Denies: Hx Hepatitis Past Surgical History: Reports: Hx Appendectomy - Immunizations Immunizations up to date: Yes Vertical Provider Document - CONSTITUTIONAL Agree With Documented VS: Yes Exam Limitations: No Limitations General Appearance: WD/WN, No Apparent Distress - INFECTION CONTROL TRAVEL OUTSIDE OF THE [place] IN LAST 30 DAYS: No - HEENT HEENT: Atraumatic, Normal ENT Exam, Normocephalic - NECK Neck: Normal Inspection, Supple. negative: Lymphadenopathy-Left, Lymphadenopathy-Right - RESPIRATORY Respiratory: Breath Sounds Normal, No Respiratory Distress, Chest Non-Tender. negative: Rales, Rhonchi, Wheezing - CARDIOVASCULAR Cardiovascular: Regular Rate, Regular Rhythm, No Murmur - BACK Back: Normal Inspection - MUSCULOSKELETAL/EXTREMETIES Musculoskeletal/Extremeties: MAEW, FROM - NEURO Level of Consciousness: Awake, Alert, Appropriate Motor/Sensory: No Motor Deficit - DERM Integumentary: Warm, Dry, No Rash Course - Re-evaluation Re-evalutation: 01/06/20 10:30 Patient presents with history most consistent with an acute panic attack. The patient admits that these are symptoms identical to prior occasions of panic. There was a clear trigger for tonight's episode. Symptoms did resolve after receiving medical therapy here in the emergency department. Vitals otherwise within normal limits. I do not suspect an acute pulmonary embolus, ACS, pneumothorax, or any other acute left threatening pathology based on history and exam. I do not believe any labs or additional imaging are indicated at this time. At this time will discharge with return precautions and follow-up recommendations. Verbal discharge instructions given a the bedside and opportunity for questions given. Medication warnings reviewed. Patient is in agreement with this plan and has verbalized understanding of return precautions and the need for primary care follow-up in the next 24-72 hours. - Vital Signs Vital signs: Temp Pulse Resp BP Pulse Ox 98.3 F 99 18 167/99 H 99 01/06/20 08:06 01/06/20 08:06 01/06/20 08:06 01/06/20 08:06 01/06/20 08:06 01/06/20 10:48 Patient without any chest pain symptoms. Patient without any dyspnea. Patient reports being off of his antiarrhythmic medication for the past 3 days. Medication will be refilled today. Patient without any arrhythmia noted on EKG. Patient denies any suicidal or homicidal ideation at this time. Patient presen ts with history most consistent with an acute panic attack. The patient admits that these are symptoms identical to prior occasions of panic. There was a clear trigger for todays episode. Symptoms have improved here in the emergency department. Vitals otherwise within normal limits. I do not suspect an acute pulmonary embolus, ACS, pneumothorax, or any other acute left threatening pathology based on history and exam. I do not believe any labs or additional imaging are indicated at this time. At this time will discharge with return precautions and follow-up recommendations. Verbal discharge instructions given a the bedside and opportunity for questions given. Medication warnings reviewed. Patient is in agreement with this plan and has verbalized understanding of return precautions and the need for primary care follow-up in the next 24-72 hours. - Diagnostic Test Radiology reviewed: Reports reviewed - EKG Interpretation by Me EKG shows normal: Sinus rhythm Rate: Normal When compared to previous EKG there are: No significant change Discharge - Discharge Clinical Impression: Anxiety Hypertension Qualifiers: Hypertension type: unspecified Qualified Code(s): I10 - Essential (primary) hypertension Condition: Stable Disposition: HOME, SELF-CARE Instructions: Anxiety ([facility]), High Blood Pressure ([facility]) Additional Instructions: Return immediately for any new or worsening symptoms Followup with your primary care provider, call tomorrow to make a followup appointment Prescriptions: Lisinopril [Prinivil] 10 mg PO DAILY #30 tablet Sotalol HCl [Sorine] 40 mg PO BID #30 tablet Diazepam [Valium 5 mg Tablet] 5 mg PO BID PRN #12 tablet PRN Reason: Forms: Return to Work
--- NOTE | 2020-01-06 10:14 | RADIOLOGY REPORT (SQ) ---
EXAM DESCRIPTION: CHEST SINGLE VIEW IMAGES COMPLETED DATE/TIME: 01/06/2020 9:50 am REASON FOR STUDY: cough COMPARISON: None. NUMBER OF VIEWS: One view. TECHNIQUE: Single frontal radiographic view of the chest acquired. LIMITATIONS: None. FINDINGS: LUNGS AND PLEURA: No opacities, masses or pneumothorax. No pleural effusion. MEDIASTINUM AND HILAR STRUCTURES: No masses. Contour normal. HEART AND VASCULAR STRUCTURES: Heart normal in size. Normal vasculature. BONES: No acute findings. HARDWARE: None in the chest. OTHER: No other significant finding. IMPRESSION: NO SIGNIFICANT RADIOGRAPHIC FINDING IN THE CHEST. TECHNICAL DOCUMENTATION: JOB ID: [id number] 2010 [employer]- All Rights Reserved Reading location - IP/workstation name: [email or web address]
[2020-01-06 10:32] VITALS: BP 169/105
--- NOTE | 2020-01-06 22:29 | EKG REPORT ---
SEVERITY:- BORDERLINE ECG - SINUS RHYTHM BORDERLINE T ABNORMALITIES, INFERIOR LEADS : Confirmed by: Vira Oneill MD 06-Jan-2020 22:29:17
== END 2020-01-06 10:43 | disposition home or self-care (01) ==
LOC: ER 08:03
DX: F41.9 Anxiety disorder, unspecified (principal); R05 Cough; I10 Essential (primary) hypertension; Z59.8 Other problems related to housing and economic circumstances; Z87.891 Personal history of nicotine dependence
CPT/HCPCS: 93005; 99283; 71045; 93010; J3490